=== PATIENT | female | born 1945 | race Caucasian/White ===

== ENCOUNTER 2023-05-10 11:14 | Outpatient (CLI) | payer MEDICARE, OTHER, SELFPAY ==
[2023-05-10 19:37] LABS: Hematocrit 38.5 % (37.0-47.0); Hemoglobin 12.2 g/dL (12.0-15.0); Mean Corpuscular HGB Conc 31.7 g/dl (32-36); Mean Corpuscular Volume 94.6 fl (80-100); Mean Platelet Volume 10.4 fl (7.4-10.4); Platelet Count Result 187 k/mm3 (150-375); Red Blood Count 4.07 M/mm3 (4.2-5.4); Red Cell Distribution Width 14.1 % (11.5-14.5); White Blood Count 6.1 K/mm3 (4.5-10.0)
[2023-05-10 19:50] LABS: Iron 79 ug/dL (37-170)
[2023-05-10 20:08] LABS: Free T4 Free Thyroxine 1.52 ng/mL (0.78-2.19)
[2023-05-10 20:25] LABS: Percent Iron Saturation 27 % (20-50)
[2023-05-10 20:53] LABS: Folic Acid 3.9 ng/mL (2.76->20)
== END 2023-05-10 11:15 | disposition home or self-care (01) ==
PROVIDERS: PCP Nurse Practitioner Adult Health; Visit Provider Nurse Practitioner Adult Health
DX: L65.9 Nonscarring hair loss, unspecified (principal)
CPT/HCPCS: 36415; 82607; 82728; 82746; 83540; 83550; 84439; 84443; 85027

== ENCOUNTER 2023-08-25 10:25 | Emergency (ER) | payer MEDICARE, OTHER, SELFPAY ==
--- NOTE | ~2023-08-25 | CT_ITS ---
EXAMINATION: CTA abdomen pelvis DATE: 08/25/2023 11:49 INDICATION: Melena and abdominal pain TECHNIQUE: Computed tomographic angiography (CTA) of the abdomen and pelvis was performed with 100 mL Omnipaque-350 intravenous contrast. Additional 3D reconstructions utilizing rotating maximum intensi ty projection (MIP) were performed. Automated exposure control and iterative reconstruction technique were employed. The dose-length product was 1207.78 mGy-cm. COMPARISON: None FINDINGS: There are multiple small patchy opacities throughout all lobes of the visualized mid to lower lungs c onsistent with likely multifocal pneumonia. Heart size is normal. Cardiac pacemaker lead tips at the right atrial appendage, the apex of the right ventricle and overlying the lateral wall of the left ve ntricle having traversed the coronary sinus. No pericardial or pleural effusion. Mild scattered ather osclerotic calcific without hemodynamically significant stenosis along the normal caliber abdominal a rajani and bilateral iliac arteries. Cholecystectomy clips the gallbladder fossa. Liver, spleen, pancre as, right bilateral adrenal glands and right kidney are normal. 2.1 cm left renal cyst. A few sigmoid diverticula without adjacent inflammatory stranding to suggest diverticulitis. The appendix is not v isualized. No pericecal inflammatory change to suggest acute appendicitis. No bowel obstruction. No a bnormal wall thickening or intraluminal contrast extravasation. Bladder is normal. The uterus is not identified and has likely been surgically resected. Severe lumbar spondylosis. A few small sclerotic bone islands in the pelvis and proximal left femur. IMPRESSION: 1. No acute intra-abdominal/pelvic process. Reviewed, dictated and finalized at location B.
--- NOTE | 2023-08-25 10:48 | ED.GENADULT ---
HPI - General Adult General Chief complaint: GI Bleed <Taylor Comer PA-C - Last Filed: 08/25/23 12:50> Stated complaint: black stools <Taylor Comer PA-C - Last Filed: 08/25/23 12:50> Time Seen by Provider: 08/25/23 10:36 <Taylor Comer PA-C - Last Filed: 08/25/23 12:50> History of Present Illness HPI narrative: 78-year-old female with history of IBS, GERD, CAD was chronically anticoagulated on Eliquis presents to the emergency department for black stools. Patient states she had a black stool 4 days ago and again 2 days ago. States she has known internal external hemorrhoids and is scheduled to see a physician in [facility] regarding these in the next few months. She had a colonoscopy last 2 years ago which showed polyps and was otherwise unremarkable. She is reporting chronic abdominal pain which is unchanged from her baseline. States the abdominal pain is improved after a bowel movement. She is taking Linzess for IBS and was recently started on famotidine by her PCP. She reports nausea which she contributes to her Ozempic, denies vomiting, diarrhea, fever, urinary complaints, mucus in her stool. No history of UC or Crohn's. Denies use of Pepto-Bismol. <Taylor Comer PA-C - Last Filed: 08/25/23 12:50> Related Data Home medications: Home Medications Medication Instructions Recorded Confirmed apixaban 5 mg tablet (Eliquis) mg 08/25/23 carvedilol 3.125 mg tablet mg 08/25/23 famotidine 40 mg tablet mg 08/25/23 linaclotide 72 mcg capsule mcg 08/25/23 (Linzess) metformin 500 mg tablet,extended mg PO 08/25/23 release 24 hr mirabegron 25 mg tablet,extended mg PO 08/25/23 release 24 hr (Myrbetriq) pitavastatin calcium 2 mg tablet mg 08/25/23 semaglutide 0.25 mg or 0.5 mg (2 mg subcut 08/25/23 08/25/23 mg/3 mL) subcutaneous pen injector (Ozempic) <OLEGARIO Jackson Last Filed: 08/25/23 12:50> Allergies/adverse reactions: Allergies Allergy/AdvReac Type Severity Reaction Status Date / Time codeine Allergy Unknown DIZZINESS Verified 08/25/23 10:50 COUGH MED W CODEINE CHOCOLATE Allergy Unknown SINUS Uncoded 07/10/23 11:08 CONGESTION EGGS Allergy Unknown SINUS Uncoded 07/10/23 11:08 CONGESTITON MILK Allergy Unknown SINUS Uncoded 07/10/23 11:08 CONGESTION <Taylor Comer PA-C - Last Filed: 08/25/23 12:50> Review of Systems Review of Systems: CONSTITUTIONAL: Denies fever, chills, or sweats. EYES: Denies visual changes, redness, or discharge. ENT: Denies rhinorrhea, congestion, sore throat, or otalgia. CARDIOVASCULAR: Denies chest pain, palpitations, or edema. RESPIRATORY: Denies cough or dyspnea. GASTROINTESTINAL: See HPI GENITOURINARY: Denies dysuria or hematuria. SKIN: Denies rash or itching. MUSCULOSKELETAL: Denies back pain, joint pain, or myalgia. NEUROLOGIC: Denies headache, numbness, or weakness. PSYCHIATRIC: Denies anxiety or depression. <Taylor Comer PA-C - Last Filed: 08/25/23 12:50> REPLACED BY [facility] Past Medical History Medical History: Medical History Allergies Arthritis Chronic GERD Diabetes Heart disease Osteoporosis <Taylor Comer PA-C - Last Filed: 08/25/23 12:50> Family History Family History: Family History Father Heart disease Grandparent Diabetes mellitus <Taylor Comer PA-C - Last Filed: 08/25/23 12:50> Social History Social History: Social History Smoking status: Never smoker Alcohol intake: never Lack of Transportation: No Lack of Food: Never True Current Housing: I Have Housing Concerned About Future Housing: No Difficulty Paying Gas/Electric Bills: No Difficulty Paying for Meds: No Currently Unemployed: Decline to Answer Education: Associate Degree Di
[2023-08-25] MEDS: PANTOPRAZOLE SODIUM IV 40 MG VIAL IV PUSH (10:57)
[2023-08-25] MEDS: SODIUM CHLORIDE 0.9% IV 1,000 ML 999 ML IV CONT (10:57)
[2023-08-25 11:09] VITALS: BP 163/81; PULSE 81; RESP 18; O2SAT 96
[2023-08-25 11:15] LABS: Basophils Absolute Auto 0.1 K/mm3 (0.0-0.1); Eosinophils Absolute Auto 0.2 K/mm3 (0-0.3); Eosinophils Percent Auto 2.5 % (0-4.4); Hematocrit 38.5 % (37.0-47.0); Hemoglobin 12.7 g/dL (12.0-15.0); Immature Granulocyte Absolute 0.01 K/mm3 (0.00-0.031); Immature Granulocyte Percent A 0.2 % (0-0.5); Lymphocytes Absolute Auto 1.45 K/mm3 (0.9-3.2); Mean Corpuscular Hemoglobin 30.1 pg (26-34); Mean Corpuscular Volume 91.2 fl (80-100); Mean Platelet Volume 9.9 fl (7.4-10.4); Monocytes Absolute Auto 0.4 K/mm3 (0.1-0.6); Monocytes Percent Auto 6.6 % (2.6-8.5); Neutrophils Percent Auto 65.7 % (45.5-73.1); Platelet Count Result 220 k/mm3 (150-375); Red Blood Count 4.22 M/mm3 (4.2-5.4); Red Cell Distribution Width 13.7 % (11.5-14.5)
[2023-08-25 11:19] LABS: INR 1.3; Prothrombin Time 16.9 Seconds (11.1-14.7)
[2023-08-25 11:20] LABS: Partial Thromboplastin Time 30.5 Seconds (22.3-36.8)
[2023-08-25 11:23] LABS: Alanine Aminotransferase 25 U/L (6-35); Albumin Level 4.3 g/dL (3.5-5.1); Alkaline Phosphatase 70 U/L (38-126); Anion Gap 6 mmol/L (8-16); Aspartate Amino Transferase 30 U/L (14-36); Bilirubin,Total 0.6 mg/dL (0.2-1.3); Blood Urea Nitrogen 22 mg/dL (7-17); Calcium 9.5 mg/dL (8.4-10.2); Carbon Dioxide 27 mmol/L (22-30); Chloride 105 mmol/L (98-107); Estimated CRCL calculation 61 ml/min; Estimated Glomerular Filt Rate > 60; Glucose 208 mg/dL (65-110); Potassium 4.1 mmol/L (3.4-5.0); Sodium 138 mmol/L (137-145)
[2023-08-25 12:08] VITALS: BP 151/78; PULSE 87; RESP 18; O2SAT 100
[2023-08-25 12:31] LABS: Appearance Urine Clear (Clear); Bilirubin Urine Negative (Negative); Blood Urine Negative (Negative); Color Urine Yellow (Yellow); Glucose Urine UA Trace mg/dL (Negative); Ketones Urine Negative (Negative); Leukocyte Esterase Ur Negative LEU/UL (Negative); Nitrate Urine Negative (Negative); Protein Urine Negative (Negative); Specific Grav Ur 1.012 (1.001-1.035); Urobilinogen Urine 0.2 mg/dL (<2.0)
[2023-08-25 12:32] LABS: Lactic Acid Reflex 1.4 mmol/L (0.7-2.0)
[2023-08-25 12:42] LABS: Add Urine Microscopic? NO
== END 2023-08-25 12:58 | disposition home or self-care (01) ==
PROVIDERS: Family Medicine; Emergency Provider Physician Assistant; PCP Nurse Practitioner Adult Health
DX: R10.84 Generalized abdominal pain (principal); I25.10 Atherosclerotic heart disease of native coronary artery without angina pectoris; E11.9 Type 2 diabetes mellitus without complications; K21.9 Gastro-esophageal reflux disease without esophagitis; K58.9 Irritable bowel syndrome, unspecified; M81.0 Age-related osteoporosis without current pathological fracture; Z86.010 Personal history of colon polyps; Z79.01 Long term (current) use of anticoagulants; Z79.85 Long-term (current) use of injectable non-insulin antidiabetic drugs; Z79.84 Long term (current) use of oral hypoglycemic drugs
CPT/HCPCS: 36415; 74174; 80053; 83605; 85025; 85610; 85730; 86850; 86900; 86901; 96361; 96374; 99284; C9113; J7030; Q9967

== ENCOUNTER 2023-08-30 11:35 | Outpatient (CLI) | payer MEDICARE, OTHER, SELFPAY ==
--- NOTE | ~2023-08-30 | XR_ITS ---
AP and lateral views of the neck Clinical history: Swelling FINDINGS: There is anterior fusion from C4-C5. There is severe degenerative disc narrowing at C5-C6 a nd C6-C7. There is extensive bridging anterior osteophytes from C2 to C3, the additional anterior ost eophytes from C3 to C4 and C6-C7. Suggestion of narrowing of the inferior oropharynx related to the l arge anterior C2-C3 osteophytes. No prevertebral soft tissue swelling otherwise. No other soft tissue reality seen. IMPRESSION: Suggestion of narrowing of the inferior oropharynx related to large anterior bridging osteophytes fro m C2 to C3. Extensive degenerative change of the cervical spine with anterior fusion from C4 to C5, as detailed a lianna. Reviewed, dictated and finalized at location M. IMPRESSION: Suggestion of narrowing of the inferior oropharynx related to large anterior br idging osteophytes from C2 to C3. Extensive degenerative change of the cervical spine with anterior fusion from C 4 to C5, as detailed above.
== END 2023-08-30 11:36 | disposition home or self-care (01) ==
LOC: ANHBWCIMG 11:37
PROVIDERS: PCP Nurse Practitioner Adult Health; Visit Provider Nurse Practitioner Adult Health
DX: R22.1 Localized swelling, mass and lump, neck (principal); Z98.1 Arthrodesis status
CPT/HCPCS: 70360

== ENCOUNTER 2023-09-04 09:27 | Outpatient (CLI) | payer MEDICARE, OTHER, SELFPAY ==
--- NOTE | ~2023-09-04 | NM_ITS ---
EXAMINATION: NM bone scan whole body DATE: 09/04/2023 13:49 INDICATION: Disorder of bone TECHNIQUE: 25.0 mCi Tc-99m HDP was administered intravenously. Delayed whole-body scintigrams were o btained. COMPARISON: CT dated 08/25/2023 and cervical soft tissues radiograph dated 08/30/2023 FINDINGS: Likely degenerative joint centered uptake at the bilateral acromioclavicular joints, at the bilateral knees greatest at the medial compartment of the left knee and at multiple joints of the bilateral junior nds and feet. Mild likely degenerative disc centered uptake in the lumbar spine and C6-C7 with corres ponding severe spondylosis evident on the prior radiograph and CT. On the initial imaging there is so me artifactual activity likely representing skin or clothing contamination at the posterior right fla nk which is not seen on follow-up scintigrams obtained following removal of the contamination. No no other foci of abnormal bone uptake suspicious for malignancy. IMPRESSION: 1. Scattered likely degenerative joint and disc centered uptake. No lesion suspicious for malignancy/ metastatic disease. Reviewed, dictated and finalized at location A. IMPRESSION: 1. Scattered likely degenerative joint and disc centered uptake. No lesion susp icious for malignancy/metastatic disease.
== END 2023-09-04 09:28 | disposition home or self-care (01) ==
LOC: ANHIMG 09:29
PROVIDERS: PCP Nurse Practitioner Adult Health; Visit Provider Nurse Practitioner Adult Health
DX: M89.9 Disorder of bone, unspecified (principal)
CPT/HCPCS: 78306; A9503

== ENCOUNTER 2023-09-13 14:47 | Outpatient (CLI) | payer MEDICARE, OTHER, SELFPAY ==
--- NOTE | ~2023-09-13 | XR_ITS ---
XR_CERV2-3V_CR DATE: 09/13/2023 15:03 INDICATION: Neck pain. Feels like something is in the throat. TECHNIQUE: AP, open-mouth, lateral and swimmer views COMPARISON: None FINDINGS: Huge anterior bridging osteophyte formation at C2-3, impressing the posterior airway opposi te the epiglottis. C2-3 and C3-4 interspaces are relatively well preserved. Status post anterior and interbody surgical fusion at C4-5, with associated effusion continuing at C5 -6. There are severe degenerative disc disease at C6-7. Moderately severe degenerative disc disease and mild anterolisthesis at C7-T1. C1 and C2 are normally aligned and the odontoid process is intact. No fracture or dislocation or lock ed facet or prevertebral soft tissue swelling is detected.. IMPRESSION: Status post anterior surgical fusion at C4-5, with fusion continuing through C5-6 Severe degenerative disc disease at C6-7 Moderately severe degenerative disease and mild anterolisthesis at the C7-T1 Very prominent bridging anterior osteophyte formation at C2-3 Reviewed, dictated and finalized at Location A. Reviewed, dictated and finalized at location B. IMPRESSION: Status post anterior surgical fusion at C4-5, with fusion continuin g through C5-6 Severe degenerative disc disease at C6-7 Moderately severe degenerative disease and mild anterolisthesis at the C7-T1 Very prominent bridging anterior osteophyte formation at C2-3
== END 2023-09-13 14:48 | disposition home or self-care (01) ==
PROVIDERS: PCP Nurse Practitioner Adult Health; Visit Provider Nurse Practitioner Adult Health
DX: M50.323 Other cervical disc degeneration at C6-C7 level (principal); M43.13 Spondylolisthesis, cervicothoracic region; M50.33 Other cervical disc degeneration, cervicothoracic region; M25.78 Osteophyte, vertebrae; Z98.1 Arthrodesis status
CPT/HCPCS: 72040

== ENCOUNTER 2023-10-09 08:40 | Outpatient (CLI) | payer MEDICARE, OTHER, SELFPAY ==
--- NOTE | ~2023-10-09 | XR_ITS ---
EXAMINATION: XR barium swallow modified DATE: 10/09/2023 09:24 INDICATION: Dysphagia, unspecified. TECHNIQUE: The patient was given barium-containing material of multiple consistencies to swallow by t homar speech pathologist while I performed fluoroscopy. Fluoroscopy exposure time was 0.66 minutes. The number of fluoroscopy images saved to the PACS was 1. Dose-area product was 0.655 Gy-cm^2. FINDINGS: The oral stage, pharyngeal stage, and cervical/esophageal stage of the swallow are normal. IMPRESSION: 1. Normal modified barium swallow. 2. Please refer to the speech therapy report for recommendations. Reviewed, dictated and finalized at location A.
--- NOTE | 2023-10-09 15:04 | REHSTMBS ---
Assessment and note entered by Josselin Zarco, GERONTOLOGY AIDE Modified Barium Swallow Evaluation Feeding Type Recommended Oral Food Consistency Regular, Level 7 Liquid Consistency Thin (0) ST Clinical Summary MODIFIED BARIUM SWALLOW STUDY This patient was seen for a Modified Barium Swallow study at the request of her physician. Patient reported that she has had spinal surgery in the neck in 1993 and then again in 2003. Patient reports a feeling of fullness at the level of the mid-sternum when eating as if food hangs up in the esophagus but she denied difficulty swallowing at the pharyngeal level. Patient was viewed in the lateral position to the level of C5/C6. screws and other metal material was viewed in the neck and a protrusion at about the level of the esophagus entrance was noted. Patient was presented with thin liquid contrast medium, pudding mixed with the semi-solid mixture, and then crackers and fruit cocktail both coated with the semi-solid mixture. She exhibited quick swallows with no evidence of penetration or aspiration and no significant pharyngeal residue. Material did have to go around the spur or protrusion into the esophagus but no pooling or residue was noted in the pharynx as a result of the protrusion. Results suggest patient can remain on a Regular Diet with Regular Liquids however patient may prefer smaller bites of softer foods than large bites of solid, [id number]-na-avwm foods. She is referred back to her physician for further assessment of her complaints. Thank you for this referral.
== END 2023-10-09 08:41 | disposition home or self-care (01) ==
LOC: ANHIMG 08:45
PROVIDERS: PCP Nurse Practitioner Adult Health; Visit Provider Physician Assistant
DX: R13.10 Dysphagia, unspecified (principal); R22.1 Localized swelling, mass and lump, neck
CPT/HCPCS: 92611

== ENCOUNTER 2025-03-14 10:29 | Emergency (ER) | payer MEDICARE, OTHER, SELFPAY ==
--- OUTSIDE RECORDS SUMMARY | 2018-01-29 | XMS_ITS | Encounter Summary ---
Author Organization [facility] Healthcare Address [address] [place] [address] Care Team Providers Care Marble Cutter Operator Name Role Phone Ilan Lockwood MD Primary Care Provider +1- [phone] Reason for Visit * Diagnostic Imaging (Routine) - Closed Specialty Diagnoses / Procedures Referred By Contac t Referred To Contact Procedures Breast Imaging Screening Outside Reference Referral, Self Referral ID Status Reason Start Date Expiration Date Visits Re quested Visits Authorized [id number] Closed 12/10/2021 01/09/2023 1 1 Encounter Details Date Type Department Care Team (Late st Contact Info) Description 01/29/2018 Hospital Encounter [facility] [address] [place] [id number] Social History Tobacco Use Types Packs/Day Years Used Date Smoking Tobacco: Never Smokeless Tobacco: Never Alcohol Use Standard Drinks/Week Comments Yes 0 (1 standard drink = 0.6 oz pur e alcohol) some AUDIT-C Answer Date Recorded Frequency of Alcohol Consumption Not on file 12/25/2023 Q2: How many drinks containi ng alcohol do you have on a typical day when you are drinking? Patient does not drink Frequency of Binge Drinking Not on file 12/10 Comments No Sex and Gender Information Value Date Recorded Sex Assigned at Not on file Legal Sex Female 6:22 PM EVS ATTENDANT Gender Identity Female 02/09/2018 7:35 AM CDT Sexual Orientation Not on file COVID-19 Exposure Response Date Recorded In the last month, have you been in contact with someone who was confirmed or suspected to have Coronavirus / COVID-19? No / Unsure 08/29/2019 11:13 AM CDT documented as of this encounter Functional Status documented as of this encounter Plan of Treatment Not on file documented as of this encounter Procedures Procedure Name Priority Date/Time Associated Diagnosis Comments BREAST IMAGING MG SCREENING OUTSIDE REFERENCE Routine 01/29/2018 12:00 AM CDT documented in this encounter Results * Breast Imaging Screening Outside Reference (01/29/2018 12:00 AM CDT) Impressions [facility]MO[facility] - 12/10/2021 8:09 AM CDT These images are for Reference purposes only and have not been reviewed by [facility] Radiology. There will be no report generated by a [facility] Radiologist. Narrative RAD_MAMMO[facility] - 12/10/2021 8:09 AM CDT EXAMINATION: Images For Reference Purposes Only us Self Referral IMG MAMMO PROCEDURES Final Resul t [facility]MO[facility] documented in this encounter Visit Diagnoses Not on filedocumented in this encounter Care Teams Marble Cutter Operator Relationship Specialty [place] [address] [place] [address] PCP - General 11/16/16 05/14/23 documented as of this encounter
--- OUTSIDE RECORDS SUMMARY | 2018-01-29 | XMS_ITS | Encounter Summary ---
Author Organization [facility] Healthcare Address [address] [place] [address] Care Team Providers Care Order Analyst Name Role Phone Ilan Lockwood MD Primary Care Provider +1- [phone] Reason for Visit * Diagnostic Imaging (Routine) - Closed Specialty Diagnoses / Procedures Referred By Contac t Referred To Contact Procedures Breast Imaging Screening Outside Reference Referral, Self Referral ID Status Reason Start Date Expiration Date Visits Re quested Visits Authorized [id number] Closed 12/10/2021 01/09/2023 1 1 Encounter Details Date Type Department Care Team (Late st Contact Info) Description 01/29/2018 Hospital Encounter [facility] Radiology [facility] [address] [place] [address] Social History Tobacco Use Types Packs/Day [...] on file Legal Sex Female 6:22 PM BOTTOM WHEELER Gender Identity Female 02/09/2018 7:35 AM CDT [...] only and have not been reviewed by [facility] Radiology. There will be no report generated by a [facility] Radiologist. Narrative RAD_MAMMO[facility] - 12/10/2021 8:09 AM CDT EXAMINATION: Images For Reference Purposes Only us Self Referral IMG MAMMO PROCEDURES Final Resul t [facility] documented in this encounter Visit Diagnoses Not on filedocumented in this encounter Care Teams Order Analyst Relationship Specialty [place] [address] [place] [address] PCP - General 11/16/16 05/14/23 documented as of this encounter
--- OUTSIDE RECORDS SUMMARY | 2019-02-07 | XMS_ITS | Encounter Summary ---
Author Organization [facility] Healthcare Address [address] [place] [address] Care Team Providers Care Appellate Conferee Name Role Phone Ilan Lockwood MD Primary Care Provider +1- [phone] Reason for Visit * Diagnostic Imaging (Routine) - Closed Specialty Diagnoses / Procedures Referred By Contac t Referred To Contact Procedures Breast Imaging Screening Outside Reference Referral, Self Referral ID Status Reason Start Date Expiration Date Visits Re quested Visits Authorized [id number] Closed 12/10/2021 01/09/2023 1 1 Encounter Details Date Type Department Care Team (Late st Contact Info) Description 02/07/2019 Hospital Encounter [facility]iology [facility] [address] [place] [address] Social History Tobacco Use Types Packs/Day [...] on file 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 Radiology. There will be no report generated by a [facility] Radiologist. Narrative RAD_MAMMO[facility] - 12/10/2021 8:10 AM CDT EXAMINATION: Images For Reference Purposes Only us Self Referral IMG MAMMO PROCEDURES Final Resul t [facility] documented in this encounter Visit Diagnoses Not on filedocumented in this encounter Care Teams Appellate Conferee Relationship Specialty [place] [address] [place] [address] PCP - General 11/16/16 05/14/23 documented as of this encounter
--- OUTSIDE RECORDS SUMMARY | 2019-02-07 | XMS_ITS | Encounter Summary ---
Author Organization [facility] Healthcare Address [address] [place] [address] Care Team Providers Care Whitewasher Name Role Phone Ilan Lockwood MD Primary Care Provider +1- [phone] Reason for Visit * Diagnostic Imaging (Routine) - Closed Specialty Diagnoses / Procedures Referred By Contac t Referred To Contact Procedures Breast Imaging Screening Outside Reference Referral, Self Referral ID Status Reason Start Date Expiration Date Visits Re quested Visits Authorized [id number] Closed 12/10/2021 01/09/2023 1 1 Encounter Details Date Type Department Care Team (Late st Contact Info) Description 02/07/2019 Hospital Encounter [facility] Radiology [facility] [address] [place] [address] Social History Tobacco Use Types Packs/Day [...] on file 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 There will be no report generated by a [facility] Radiologist. Narrative RAD_MAMMO[facility] - 12/10/2021 8:10 AM CDT EXAMINATION: Images For Reference Purposes Only us Self Referral IMG MAMMO PROCEDURES Final Resul t [facility] documented in this encounter Visit Diagnoses Not on filedocumented in this encounter Care Teams Whitewasher Relationship Specialty [place] [address] [place] [address] PCP - General 11/16/16 05/14/23 documented as of this encounter
--- OUTSIDE RECORDS SUMMARY | 2019-02-12 | XMS_ITS | Encounter Summary ---
Author Organization [facility] Healthcare Address [address] [place] [address] Care Team Providers Care Foundation Coordinator Name Role Phone Ilan Lockwood MD Primary Care Provider +1- [phone] Reason for Visit * Diagnostic Imaging (Routine) - Closed Specialty Diagnoses / Procedures Referred By Contac t Referred To Contact Procedures Breast Imaging Diagnostic Outside Reference Referral, Self Referral ID Status Reason Start Date Expiration Date Visits Re quested Visits Authorized [id number] Closed 12/10/2021 01/09/2023 1 1 Encounter Details Date Type Department Care Team (Late st Contact Info) Description 02/12/2019 Hospital Encounter [facility] Radiology [facility] [address] [place] [address] Social History Tobacco Use Types Packs/Day [...] on file Legal Sex Female 6:22 PM WHEAT BUYER Gender Identity Female 02/09/2018 7:35 AM CDT [...] Date/Time Associated Diagnosis Comments BREAST IMAGING MG DIAGNOSTIC OUTSIDE REFERENCE Routine 02/12/2019 12:00 AM CDT documented in this encounter Results * Breast Imaging Diagnostic Outside Reference (02/12/2019 12:00 AM CDT) Impressions RAD_M[facility]MO[facility] - 12/10/2021 8:09 AM CDT These images are for Reference purposes only and have not been reviewed by [facility] Radiology. There will be no report generated by a [facility] Radiologist. Narrative RAD_MAMMO[facility] - 12/10/2021 8:09 AM CDT EXAMINATION: Images For Reference Purposes Only us Self Referral IMG MAMMO PROCEDURES Final Resul t [facility]MO[facility] documented in this encounter Visit Diagnoses Not on filedocumented in this encounter Care Teams Foundation Coordinator Relationship Specialty [place] [address] [place] [address] PCP - General 11/16/16 05/14/23 documented as of this encounter
--- OUTSIDE RECORDS SUMMARY | 2019-02-12 | XMS_ITS | Encounter Summary ---
Author Organization [facility] Healthcare Address [address] [place] [address] Care Team Providers Care Special Client Bus Driver Name Role Phone lIan Lockwood MD Primary Care Provider +1- [phone] Reason for Visit * Diagnostic Imaging (Routine) - Closed Specialty Diagnoses / Procedures Referred By Contac t Referred To Contact Procedures Breast Imaging Diagnostic Outside Reference Referral, Self Referral ID Status Reason Start Date Expiration Date Visits Re quested Visits Authorized [id number] Closed 12/10/2021 01/09/2023 1 1 Encounter Details Date Type Department Care Team (Late st Contact Info) Description 02/12/2019 Hospital Encounter [facility] Radiology [facility] [address] [place] [address] Social History Tobacco Use Types Packs/Day [...] on file 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 There will be no report generated by a [facility] Radiologist. Narrative RAD_MAMMO[facility] - 12/10/2021 8:09 AM CDT EXAMINATION: Images For Reference Purposes Only us Self Referral IMG MAMMO PROCEDURES Final Resul t [facility] documented in this encounter Visit Diagnoses Not on filedocumented in this encounter Care Teams Special Client Bus Driver Relationship Specialty [place] [address] [place] [address] PCP - General 11/16/16 05/14/23 documented as of this encounter
--- OUTSIDE RECORDS SUMMARY | 2022-04-25 11:43 | XMS_ITS | Encounter Summary ---
Author Organization [facility] Address [address] [place] [address] Phone Care Team Providers Care Industrial Electrician Journeyman Name Role Phone Ilan Lockwood MD Primary Care Provider +1- [phone] Reason for Referral * (Routine) - Closed Specialty Diagnoses / Procedures Referred By Robbie leavitt Referred To Contact Diagnoses SOB (shortness of breath) Procedures Pulmonary Function Test -[facility] Adult PFT [facility]- [facility]; Spirometry with Bronchodilator, Spirometry, Oxygen Assessment Titration, ABG, DLCO, Lung Volumes; Pleth with Airway Resistance; Room Air ABG; Spirometry Justyn Francois MD Phone: tel: fax: Referral ID Status Reason Start Date Expiration Date Visits Re quested Visits Authorized [id number] Closed 01/24/2022 02/23/2023 1 1 ET INSPECTOR Reason for Visit * (Routine) - Closed Specialty Diagnoses / Procedures Referred By Contrupert leavitt Referred To Contact Diagnoses SOB (shortness of breath) Procedures Pulmonary Function Test -[facility]FT [facility]- [facility]; Spirometry with Bronchodilator, Spirometry, Oxygen Assessment Titration, ABG, DLCO, Lung Volumes; Pleth with Airway Resistance; Room Air ABG; Spirometry Justyn Francois MD Phone: tel: fax: Referral ID Status Reason Start Date Expiration Date Visits Re quested Visits Authorized [id number] Closed 01/24/2022 02/23/2023 1 1 Encounter Details Date Type Department Care Team (Latest Contact Info) Description 04/25/2022 10:43 AM GASKET INSPECTOR Hospital Encounter [facility] Medicine PFT Lab [address] [facility] Medical Office Building [address] [place] [address] SOB (shortness of breath) Social History Tobacco Use Types Packs/Day Years [...] on file Legal Sex Female 6:22 PM GASKET INSPECTOR Gender Identity Female 02/09/2018 7:35 AM CDT Sexual Orientation Not on file documented as of this encounter Functional Status documented as of this encounter Plan of Treatment Not on file documented as of this encounter Procedures Procedure Name Priority Date/Time Associated Diagnosis Comments PULMONARY FUNCTION TEST (PFT) Routine 04/25/2022 1:16 PM GASKET INSPECTOR SOB (shortness of breath) documented in this encounter Results * Pulmonary Function Test - (04/25/2022 1:16 PM GASKET INSPECTOR) FVC PRE 2.42 L [facility] FVC %PRE PRED 88 % [facility] FVC POST 2.52 L [facility] FVC %POST PRED 91 % [facility] FEV1 PRE 1.61 L [facility] FEV1 %PRE PRED 76 % [facility] FEV1 POST 1.67 L [facility] FEV1 %POST PRED 79 % [facility] FEV1/FVC PRE 66.5 % [facility] FEV1/FVC POST 66.2 % [facility] FRC PL PRE 3.11 L [facility] FRC PL %PRE PRED 105 % [facility] RV PRE 2.76 L [facility] RV %PRE PRED 119 % [facility] TLC PRE 5.26 L [facility] TLC %PRE PRED 102 % [facility] DLCO PRE 17.4 ml/min/mmH g [facility] DLCO %PRE PRED 89 % [facility] FIO2 % 21.00 % [facility] PaO2 90.0 mmHg [facility] PaCO2 40.0 mmHg [facility] pH 7.46 [facility] A-aDO2 POC 10.0 mmHg [facility] METHGB % 0.8 % [facility] COHb POC 2.1 % [facility] HCO3 28.4 mEq/L [facility] Anatomical Region Laterality Modality PFT 04/25/2022 10:5 1 AM GASKET INSPECTOR Narrative 04/29/2022 1:36 PM GASKET INSPECTOR Table formatting from the original result was not included. [facility] Division of Pulmonary & Critical Care Medicine [address] [place] [address]; [facility]; [place] [address]; [phone] Pulmonary Function Laboratory Pulmonary Stress Test Simple/Oxygen Assessment Patient: Loretta Cortes Date: No visit date found. : 1945 Ht: 64.5 IN Wt: 230 LBS Time (min) Distance (ft)/ Lea O2 L/M SpO2 HR Leonora* BP FEV1 % Pred Rest: RA 98 73 0 155/77 1.61 76 % Walk/Bike: 1 RA 98 97 3 2 RA 97 106 4 3 RA 97 111 4 4 RA 98 114 5 5 RA 97 115 5 6 min 0 sec RA 97 113 5 Recovery: 1 RA 97 89 3 190/78 1.55 73% 3 RA 99 82 0 *Leonora rate of perceived exertion (1-10 dyspnea scale) Azeem, CHEST 2003; 123:1408 Walk Test Summary: Six Minute Walk Distance: 720 ft Six-minute Walk Work [distance (m) x body wt (kg)]: 00220 kg.m (normal >60,000kg.m) Oxygen required to maintain SpO2 greater than 90% during six minutes of walkin L/M Comments: O2A Interpretation: Breathing room air, SpO2 is normal at rest and during exercise sufficient to increase pulse from 73 to 115 b/min, SpO2 is stable. On this basis, SpO2 is adequate at rest breathing room air and while walking breathing room air. This level of exercise is associated with no significant change of FEV1. Marco Velez M.D. By signing this report, the attending pulmonary physician certifies that he/she has personally reviewed and interpreted the graphic and numerical data associated with this pulmonary function study and has reviewed and /or edited a preliminary draft report and agrees with the written final report. PFT performed at:->[facility] Adult PFT Lab- [facility] Procedure:->Spirometry with Bronchodilator Procedure:->Spirometry Procedure:->Oxygen Assessment Titration Procedure:->ABG Procedure:->DLCO Procedure:->Lung Volumes Lung Volumes via:->Pleth with Airway Resistance ABG:->Room Air ABG DLCO:->Spirometry Justyn Francois MD PFT ORDERABLES Yazmin l Result documented in this encounter Visit Diagnoses Diagnosis SOB (shortness of breath) Shortness of breath documented in this encounter Care Teams Industrial Electrician Journeyman Relationship Specialty [place] [address] [address] PCP - General 11/16/16 05/14/23 documented as of this encounter
--- OUTSIDE RECORDS SUMMARY | 2022-04-25 11:43 | XMS_ITS | Encounter Summary ---
Author Organization [facility] Address [address] [place] [address] Phone Care Team Providers Care Supervisor Diagnostic Name Role Phone Ilan Lockwood MD Primary Care Provider +1- [phone] Reason for Referral * (Routine) - Closed Specialty Diagnoses / Procedures Referred By Robbie leavitt Referred To Contact Diagnoses SOB (shortness of breath) Procedures Pulmonary Function Test -[facility]FT [facility]- [facility]; Spirometry with Bronchodilator, Spirometry, Oxygen Assessment Titration, ABG, DLCO, Lung Volumes; Pleth with Airway Resistance; Room Air ABG; Spirometry Justyn Francois MD Phone: tel: fax: Referral ID Status Reason Start Date Expiration Date Visits Re quested Visits Authorized [id number] Closed 01/24/2022 02/23/2023 1 1 TER DOPER Reason for Visit * (Routine) - Closed Specialty Diagnoses / Procedures Referred By Contrupert leavitt Referred To Contact Diagnoses SOB (shortness of breath) Procedures Pulmonary Function Test -[facility]FT [facility]- [facility]; Spirometry with Bronchodilator, Spirometry, Oxygen Assessment Titration, ABG, DLCO, Lung Volumes; Pleth with Airway Resistance; Room Air ABG; Spirometry Justyn Francois MD Phone: tel: fax: Referral ID Status Reason Start Date Expiration Date Visits Re quested Visits Authorized [id number] Closed 01/24/2022 02/23/2023 1 1 Encounter Details Date Type Department Care Team (Latest Contact Info) Description 04/25/2022 10:43 AM QUARTER DOPER Hospital Encounter [facility] Medicine PFT Lab [address] [facility] Medical Office Building [address] [place] [address] SOB (shortness of breath) Social History Tobacco [...] on file Legal Sex Female 6:22 PM QUARTER DOPER Gender Identity Female 02/09/2018 7:35 AM CDT Sexual Orientation Not on file documented as of this encounter Functional Status documented as of this encounter Plan of Treatment Not on file documented as of this encounter Procedures Procedure Name Priority Date/Time Associated Diagnosis Comments PULMONARY FUNCTION TEST (PFT) Routine 04/25/2022 1:16 PM QUARTER DOPER SOB (shortness of breath) documented in this encounter Results * Pulmonary Function Test - (04/25/2022 1:16 PM QUARTER DOPER) FVC PRE 2.42 L [facility] FVC %PRE PRED 88 % [facility] FVC POST 2.52 L [facility] FVC %POST PRED 91 % [facility] FEV1 PRE 1.61 L [facility] FEV1 %PRE PRED 76 % [facility] FEV1 POST 1.67 L [facility] FEV1 %POST PRED 79 % [facility] FEV1/FVC PRE 66.5 % [facility] FEV1/FVC POST 66.2 % [facility] FRC PL PRE 3.11 L [facility] FRC PL %PRE PRED 105 % [facility] RV PRE 2.76 L [facility] RV %PRE PRED 119 % [facility] TLC PRE 5.26 L [facility] TLC %PRE PRED 102 % [facility] DLCO PRE 17.4 ml/min/mmH g [facility] DLCO %PRE PRED 89 % [facility] FIO2 % 21.00 % [facility] PaO2 90.0 mmHg [facility] PaCO2 40.0 mmHg [facility] pH 7.46 [facility] A-aDO2 POC 10.0 mmHg [facility] METHGB % 0.8 % [facility] COHb POC 2.1 % [facility] HCO3 28.4 mEq/L [facility] Anatomical Region Laterality Modality PFT 04/25/2022 10:5 1 AM QUARTER DOPER Narrative 04/29/2022 1:36 PM QUARTER DOPER Table formatting from the original result was not included. [facility] Division of Pulmonary & Critical Care Medicine [address] [place] [address]; [facility]; [place] [address]; [phone] Pulmonary Function Laboratory Pulmonary Stress Test Simple/Oxygen [...] Work [distance (m) x body wt (kg)]: 12983 kg.m (normal >60,000kg.m) Oxygen required to maintain [...] with the written final report. PFT performed at:->[facility] Adult PFT Lab- [facility] Procedure:->Spirometry with Bronchodilator Procedure:->Spirometry Procedure:->Oxygen Assessment Titration Procedure:->ABG Procedure:->DLCO Procedure:->Lung Volumes Lung Volumes via:->Pleth with Airway Resistance ABG:->Room Air ABG DLCO:->Spirometry Justyn Francois MD PFT ORDERABLES Yazmin l Result documented in this encounter Visit Diagnoses Diagnosis SOB (shortness of breath) Shortness of breath documented in this encounter Care Teams Supervisor Diagnostic Relationship Specialty [place] [address] [address] PCP - General 11/16/16 05/14/23 documented as of this encounter
--- OUTSIDE RECORDS SUMMARY | 2023-12-25 12:57 | XMS_ITS | Encounter Summary ---
Author Organization [facility] Address [address] [place] [address] Phone Care Team Providers Care Supervisor Engraving Name Role Phone Anisha Medrano NP Primary Care Provider [phone] Reason for Referral * Procedure (Routine) - Closed Specialty Diagnoses / Procedures Referred By Robbie leavitt Referred To Contact Diagnoses Bronchiectasis without complication (HCC) Procedures Pulmonary Function Test -[facility]FT [facility]- [facility]; Spirometry, Oxygen Assessment Titration Justyn Francois MD Phone: tel: fax: Referral ID Status Reason Start Date Expiration Date Visits Re quested Visits Authorized [id number] Closed 07/19/2023 08/17/2024 1 1 Reason for Visit * Procedure (Routine) - Closed Specialty Diagnoses / Procedures Referred By Robbie leavitt Referred To Contact Diagnoses Bronchiectasis without complication (HCC) Procedures Pulmonary Function Test -[facility]- [facility]; Spirometry, Oxygen Assessment Titration Justyn Francois MD Phone: tel: fax: Referral ID Status Reason Start Date Expiration Date Visits Re quested Visits Authorized [id number] Closed 07/19/2023 08/17/2024 1 1 Encounter Details Date Type Department Care Team (Latest Contact Info) Description 12/25/2023 12:57 PM CDT Hospital Encounter [facility] Medicine PFT Lab [address] [facility] [address] [place] [address] Bronchiectasis without complication (HCC) Social History Tobacco Use Types Packs/Day Years [...] on file 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 Gender Identity Female 02/09/2018 7:35 AM CDT Sexual Orientation Not on file documented as of this encounter Functional Status documented as of this encounter Plan of Treatment Not on file documented as of this encounter Procedures Procedure Name Priority Date/Time Associated Diagnosis Comments PULMONARY FUNCTION TEST (PFT) Routine 12/25/2023 1:24 PM CDT Bronchiectasis without complication (HCC) documented in this encounter Results * Pulmonary Function Test - (12/25/2023 1:24 PM CDT) FVC PRE 2.67 L [facility] FVC %PRE PRED 99 % [facility] FEV1 PRE 1.62 L [facility] FEV1 %PRE PRED 79 % [facility] FEV1/FVC PRE 60.8 % [facility] Anatomical Region Laterality Modality PFT 12/25/2023 1:00 PM CDT Impressions 12/25/2023 5:51 PM CDT There is a mild obstructive ventilatory defect. Compared with study dated 04/25/2022 , there has been no significant interval change. Fabián Clay MD The attending pulmonary physician certifies that he/she has reviewed and interpreted the graphic and numerical data of this pulmonary function study and agrees with the written final report. Narrative 12/25/2023 5:51 PM CDT Table formatting from the original result was not included. [facility] Division of Pulmonary & Critical Care Medicine [address] [place] [address]; [address]; [place] [address]; [phone] Pulmonary Function Laboratory Pulmonary Stress Test Simple/Oxygen Assessment Patient: Loretta Cortes Date: 12/25/2023 : 1945 Ht: 65 IN Wt: 223 LBS Time (min) Distance (ft)/ Lea O2 L/M SpO2 HR Leonora* BP FEV1 % Pred Rest: RA 98 103 4 128/60 1.62 79% Walk/Bike: 1 RA 98 110 4 2 RA 99 116 4 3 RA 99 120 4 4 RA 97 105 4 5 RA 96 105 5 6 min 0 sec RA 97 107 5 Recovery: 1 RA 97 117 5 124/63 1.60 78% 3 RA 98 114 5 *Leonora rate of perceived exertion (1-10 dyspnea scale) Azeem, CHEST 2003; 123:1408 Walk Test Summary: Six Minute Walk Distance: 675 ft Six-minute Walk Work [distance (m) x body wt (kg)]: 48706 kg.m (normal >60,000kg.m) Oxygen required to maintain SpO2 greater than 90% during six minutes of walkin L/M Comments: QUAD- CANE USED Interpretation: Breathing room air, SpO2 is normal at rest. During exercise sufficient to increase pulse from 103 to 120 b/min, SpO2 is stable. On this basis, SpO2 is adequate at rest breathing room air and while walking breathing room air. This level of exercise is associated with no significant change of FEV1. Fabián Clay M.D. By signing this report, the attending pulmonary physician certifies that he/she has personally reviewed and interpreted the graphic and numerical data associated with this pulmonary function study and has reviewed and /or edited a preliminary draft report and agrees with the written final report. PFT performed at:->[facility] Adult PFT Lab- [facility] Procedure:->Spirometry Procedure:->Oxygen Assessment Titration Pulmonary Function Test Interpretation SPIROMETRY: There is scooping of the expiratory limb of the flow-volume curve, consistent with expiratory airflow obstruction. There is a decrease in expiratory airflow at all lung volumes. The FEV1 to FVC ratio is reduced. FLOW VOLUME LOOPS: The inspiratory loop is appropriate for the expiratory flow abnormality. PULSE OXIMETRY: See Oxygen Assessment/Cardiopulmonary Exercise Study-Simple us Justyn Francois MD PFT ORDERABLES Yazmin l Result documented in this encounter Visit Diagnoses Diagnosis Bronchiectasis without complication (HCC) documented in this encounter Care Teams Supervisor Engraving Relationship Specialty Start Date End Date Anisha Medrano NP [address] [place] [address] PCP - General Nurse Practitioner 05/15/23 11/13/24 documented as of this encounter
--- OUTSIDE RECORDS SUMMARY | 2023-12-25 12:57 | XMS_ITS | Encounter Summary ---
Author Organization [facility] Address [address] [place] [address] Phone Care Team Providers Care Child Care Teacher Name Role Phone Anisha Medrano NP Primary Care Provider [phone] Reason for Referral * Procedure (Routine) - Closed Specialty Diagnoses / Procedures Referred By Robbie leavitt Referred To Contact Diagnoses Bronchiectasis without complication (HCC) Procedures Pulmonary Function Test -[facility]- [facility]; Spirometry, Oxygen Assessment Titration Justyn Francois MD Phone: tel: fax: Referral ID Status Reason Start Date Expiration Date Visits Re quested Visits Authorized [id number] Closed 07/19/2023 08/17/2024 1 1 Reason for Visit * Procedure (Routine) - Closed Specialty Diagnoses / Procedures Referred By Robbie leavitt Referred To Contact Diagnoses Bronchiectasis without complication (HCC) Procedures Pulmonary Function Test -[facility]- 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 [facility] Division of Pulmonary & Critical Care Medicine [address] [place] [address]; [address]; [place] [address]; [phone] Pulmonary Function Laboratory Pulmonary Stress Test Simple/Oxygen [...] Work [distance (m) x body wt (kg)]: 02938 kg.m (normal >60,000kg.m) Oxygen required to maintain [...] with the written final report. PFT performed at:->[facility] Adult PFT Lab- [facility] Procedure:->Spirometry Procedure:->Oxygen Assessment Titration Pulmonary Function Test [...] (HCC) documented in this encounter Care Teams Child Care Teacher Relationship Specialty Start Date End Date Anisha Medrano NP [address] [place] [address] PCP - General Nurse Practitioner 05/15/23 11/13/24 documented as of this encounter
--- NOTE | ~2025-03-14 | XR_ITS ---
EXAMINATION: XR hip LT min 3V w AP pelvis, 03/14/2025 12:00 CDT HISTORY: left hip pain, fall COMPARISON: No comparisons available. Findings: No acute fracture or malalignment. Moderate degenerative changes Soft tissues unremarkable. Impression: No acute fracture or malalignment. Reviewed, dictated and finalized at location P. Impression: No acute fracture or malalignment.
--- NOTE | ~2025-03-14 | XR_ITS ---
Clinical history:Left knee pain EXAM:X-ray knee left 3 views TECHNIQUE:4 images of the left knee were obtained. Comparisons:None available FINDINGS: Severe narrowing of the medial compartment and patellofemoral joint. Moderate sized suprapatellar effusion. Bones appear osteopenic. Mild spurring of the tibial spine. Moderate narrowing of the lateral compartment. No fracture. No dislocation. Mild lateral patellar tilt. Soft tissue swelling about the left knee. IMPRESSION: 1. No fracture or dislocation identified. 2. Severe narrowing of the medial compartment and patellofemoral joint. If symptoms persist or worsen, consider a short-term follow-up study or additional imaging for further assessment. Reviewed, dictated and finalized at location Q. IMPRESSION: 1. No fracture or dislocation identified. 2. Severe narrowing of the medial compartment and patellofemoral joint. If symptoms persist or worsen, consider a short-term follow-up study or additio nal imaging for further assessment.
--- NOTE | ~2025-03-14 | CT_ITS ---
CT HEAD NON-CONTRAST CT C-SPINE Clinical History: head injury Comparison: None Technique: Unenhanced axial images skull base to vertex. Coronal, sagittal reformats. Axial images thoracic inlet to skull base. Sagittal and coronal reformats. CT images acquired with automatic exposure control for dose reduction DLP: 757 mGy-cm Findings: Head: Sulci, ventricles: Unremarkable. No intracerebral hemorrhage. No evidence acute territorial infarct. No mass effect, midline shift, intra-/extra-axial fluid collection. Bony calvarium intact. Visualized paranasal sinuses: Clear. Mastoid air cells: Clear. C-spine: ACDF C4-5. Ankylosis C4-6 No acute fracture or listhesis. Moderate degenerative changes and disc disease. Prevertebral soft tissues within normal limits. Visualized lung apices: Bilateral nodular foci airspace opacity. Visualized thyroid: Unremarkable. No enlarged cervical nodes. IMPRESSION: HEAD: 1. No acute intracranial findings. C-SPINE: 1. Recommend CT chest. Bilateral nodular foci airspace disease and/or masses. 2. No C-spine fracture. Reviewed, dictated and finalized at location R. IMPRESSION: HEAD: 1. No acute intracranial findings. C-SPINE: 1. Recommend CT chest. Bilateral nodular foci airspace disease and/or masses. 2. No C-spine fracture.
[2025-03-14 10:32] VITALS: BP 115/76; PULSE 109; RESP 18; TEMP 37.1; O2SAT 97
--- OUTSIDE RECORDS SUMMARY | 2025-03-14 10:37 | XMS_ITS | Encounter Summary ---
Author Organization [facility] Address [address] [place] [address] Phone Care Team Providers Care Shrimp Packer Name Role Phone Ilan Lockwood MD Primary Care Provider [phone] Nat Collins RN Unavailable [phone] Anisha Medrano NP Primary Care Provider [phone] Anisha Medrano NP Primary Care Provider [phone] Encounter Details Date Type Department Care Team (Latest Contact Info) Description 04/09/2019 Orders Only [facility] Scanning, Provider Social History Tobacco Use Types Packs/Day Years Used Date Smoking Tobacco: Never Smokeless Tobacco: Never Comments Unknown Sex and Gender Information Value Date Recorded Sex Assigned at Not on file 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 Gender Identity Female 02/09/2018 7:35 AM CDT Sexual Orientation Not on file documented as of this encounter Plan of Treatment Not on file documented as of this encounter Procedures Procedure Name Priority Date/Time Associated Diagnosis Comments CARDIOLOGY DOCUMENT SCAN 04/09/2019 documented in this encounter Results * SCAN - CARDIOLOGY (04/09/2019) Anatomical Region Laterality Modality Other us Provider Scanning [facility] CARDIAC SERVICES PROCEDURES Final Result documented in this encounter Visit Diagnoses Not on filedocumented in this encounter Care Teams Shrimp Packer Relationship Specialty [place] [address] [address] PCP - General 11/16/16 05/14/23 Anisha Medrano NP [address] [place] [address] PCP - General Nurse Practitioner 05/15/23 11/13/24 Anisha Medrano NP [address] [place] [address] PCP - General Nurse Practitioner 11/14/24 Nat Collins, RN [address] [address] [facility] Outpatient Research Worker Kitchen 04/17/19 06/09/19 documented as of this encounter
--- OUTSIDE RECORDS SUMMARY | 2025-03-14 10:37 | XMS_ITS | Clinical Summary ---
Author Organization [facility] Address [address] [place] [address] Care Team Providers Care K9 Handler Name Role Phone Ilan Lockwood MD Primary Care Provider [phone] Allergies Active Allergy Reactions Criticality Noted Date Comments Atorvastatin Joint Pain Low 04/27/2020 Chocolate Runny Nose Low 04/26/2016 Codeine Nausea Only,Dizziness Low 04/26/2016 With the cough syrup Eggs Runny Nose Low 04/26/2016 Metoprolol Shortness of Breath High 05/15/2020 Milk (Cow) Runny Nose Low 04/26/2016 MILK Spironolactone Headache,Nausea Only ,GI Upset Low 05/30/2019 Medications aspirin EC 81 MG tablet Take 1 tablet (81 mg total) by mouth daily. 7 Active cetirizine 10 MG tablet Take 1 tablet (10 mg total) by mouth daily as needed. 6 Active Cholecalciferol (VITAMIN D3) 1000 units Cap Take 2 capsules by mouth daily. 6 Active Coenzyme Q10 (CO Q-10) 200 MG Cap Take 1 capsule by mouth daily. Active Wallula-3 Fatty Acids (FISH OIL) 1200 MG Cap Take 1 capsule by mouth daily. Active carvedilol 3.125 MG tablet Take 1 tablet (3.125 mg total) by mouth 2 (two) times daily. Active sacubitril-vals ginger (ENTRESTO) 24-26 MG tabletIndicatio ns:Heart failure (CMS/HCC HHS/HCC) Take 1 tablet by mouth 2 (two) times daily. 60 tablet 2 9 Active apixaban 5 MG tablet Take 1 tablet (5 mg total) by mouth 2 (two) times daily. Active calcium-magnesi um-zinc 333-133-5 MG Tab Take by mouth 3 (three) times daily. Active pitavastatin 2 MG Tab Take 1 tablet (2 mg total) by mouth 2 (two) times daily. Active ONETOUCH ULTRA test stripIndication s:Type 2 diabetes mellitus without complication, with long-term current use of insulin ([facility]) 1 strip by Other route daily. Use as instructed 100 strip 1 2 Active Lancets (ONETOUCH ULTRASOFT) lancetsIndicati ons:Type 2 diabetes mellitus without complication, with long-term current use of insulin ([facility]) USE TO TEST BLOOD SUGAR ONCE DAILY 100 each 1 2 Active MYRBETRIQ 25 MG 24 hr tablet Take 1 tablet (25 mg total) by mouth daily. Active famotidine (PEPCID) 40 MG tablet Take 1 tablet (40 mg total) by mouth daily. 3 Active metFORMIN ER (GLUCOPHAGE-XR) 500 MG 24 hr tablet Take 1 tablet (500 mg total) by mouth 2 (two) times daily with meals. 4 Active simvastatin (ZOCOR) 20 MG tablet Active traMADol (ULTRAM) 50 MG tablet Active Semaglutide (OZEMPIC, 0.25 OR 0.5 MG/DOSE, SC) Active Active Problems Problem Noted Date Diagnosed Date Morbid (severe) obesity due to excess calories 1 Acute non-recurrent maxillary sinusitis 09/28/19 22 Cough in adult 09/27/2021 SOB (shortness of breath) 08/11/2020 Overview (08/11/2020): Last Assessment & Plan: - unclear etiology, occurs intermittently at random, CXR with bilateral opacities but no cough/infectious symptoms Heart Failure. - echo with reduced EF of 45% Pt has bronchiectasis dx; start Entresto for HF Paroxysmal atrial fibrillation ([facility]) 12/04/2019 Pacemaker 08/29/2019 Bradycardia 08/21/2019 Overview (08/11/2020): Last Assessment & Plan: Bradycardia with rates to upper 30s. Minimally symptomatic at rest, but with dyspnea and lightheadedness on exertion. Found to be in 2:1 A-V conduction while coming in for outpatient RAUDEL. RAUDEL aborted. EP consulted. -telemetry -atropine at bedside -holding home carvedilol -CMR: No LGE enhancement to suggest infiltrative disease or scar -S/p CRTP PPM on 08/25 by EP (Dr Perez) -CXR and device check on 08/26 AM prior to likely discharge -Will follow up in EP clinic in 7-10 days Nonrheumatic mitral valve regurgitation 08/21/19 Overview (08/11/2020): Last Assessment & Plan: Mod-severe MR on TTE 08/02, worse compared to TTE from 03/2019. Was coming in for RAUDEL per Dr Reynoso. RAUDEL aborted 2/2 bradycardia. No current acute HF decompensation. MR possibly 2/2 dilated cardiomyopathy. -HF management as per HF problem -Will follow up with Dr Reynoso to schedule RAUDEL Coronary artery disease invo lving [place] coronary artery of [place] heart without angina pectoris 05/18/2019 Dilated cardiomyopathy ([facility]/H[facility]) 019 Chronic systolic congestive heart failure (CMS/H CC [facility]) 04/11/2019 Overview (08/11/2020): Last Assessment & Plan: NICM. EF 40-45% (08/02). Associated with mod-severe MR. No acute decompensation. 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 A1c 6.1 in March. -A1c -Accuchecks and SSI PRN - Has not required any insulin over multiple days. Will just follow BG on daily BMP Immunizations Immunization Administration Dates Next Due Arexvy Respiratory Syncytial Virus (RSV, adjuvanted) 0.5 mL, PF 03/23/2023 Fluzone High Dose (IIV, triv alent, 0.5mL) 03/10/2022,03/16/2020,05/23/2018,2017 Fluzone High Dose - >Age 65 (Prefilled Syringe) 03/23/2023,03/25/2021,05/23/2018,2017 Influenza Adult (Generic) 03/10/2022,,03/16/2020,2018,05/23/2018,07/24/2017 MODERNA COVID-19 BIVALENT (1 2+), MRNA, LNP-S, PF 02/24/2022 MODERNA COVID-19 (12+) MRNA, LNP-S, PF, 100 MCG/ 0.5 ML DOSE 04/06/2021,07/08/2020,06/10/2020 MODERNA COVID-19 ([employer]NAGER SHELBIE KENYA), MRNA, LNP-S, PF, 50 MCG/ 0.25 ML DOSE 11/12/2021 Pneumococcal (Pneumovax 23) 03/11/2018, 4 Pneumococcal (Prevnar 13) 05/23/2018 Tdap (Adacel) 12/17/2019 Tdap (Generic) 08/03/2010 Family History Medical History Relation Comments CHF Father Alzheimers Mother Dementia Mother Relation Status Comments Father Mother Social History Tobacco Use Types Packs/Day Years Used Date Smoking Tobacco: Never Smokeless Tobacco: Never Tobacco Cessation:Counseling Given: No Comments:no hx tobacco Alcohol Use Standard Drinks/Week Comments No 0 (1 standard drink = 0.6 oz pur e alcohol) AUDIT-C Answer Date Recorded Frequency of Alcohol Consumption Never 04/20/2018 Average Number of Drinks Not on file 018 Frequency of Binge Drinking Not on file 02/2018 PHQ-2 Answer Date Recorded Patient Health Questionnaire-2 Score 0 10/30/2023 Comments No Sex and Gender Information Value Date Recorded Sex Assigned at Not on file Legal Sex Female 5:54 PM CDT Gender Identity Not on file Sexual Orientation Not on file Last Filed Vital Signs Vital Sign Reading Time Taken Comments Blood Pressure 135/82 11/18/2024 11:00 AM CDT Pulse 107 11/18/2024 11:00 AM CDT Temperature 37.2 C (99 F) 11/18/2024 11:00 AM CDT Respiratory Rate 16 11/18/2024 11:00 AM CDT Oxygen Saturation 97% 11/18/2024 11:00 AM CDT Inhaled Oxygen Concentration - - Weight 94.8 kg (209 lb) 11/18/2024 11:00 AM CDT Height 167.6 cm (5' 6) 11/18/2024 11:00 AM CDT Body Mass Index 33.73 11/18/2024 11:00 AM CDT Plan of Treatment Health Maintenance Due Date Last Done Comments Kidney Health Evaluation 1945 Diabetes: Retinopathy Eye Exam 1965 Hepatitis C 1965 Zoster Vaccines (1 of 2) 1997 Annual Medicare Wellness Visit 02/23/2012 PHQ-2 (Physician [place]) 06/12/2024 10/30/2023 Hemoglobin A1C 09/14/2024 03/16/2024, 03/12, 01/04/2023, Additional history exists COVID-19 Vaccine ( season) 2025 03/02/2023, 02/24/2022, 11/12/2021, Additional history exists Lipid Panel 03/16/2025 03/16/2024, 12/10, 03/25/2023, Additional history exists DTaP, Tdap and Td Vaccines (3 - Td or Tdap) 12/16/2029 12/17/2019, 08/03/2010 Pneumococcal Vaccine: 50+ Years Completed 05/23/2018, 03/11/2018, 05/05/2014 Colorectal Cancer Screening Colonoscopy (10 Years) Discontinued 12/14/2021, 12/14/2021, 10/13/2015 RSV Immunization or 60+ Years Completed 03/23/2023 Dexa Scan (General) Completed 05/18/2023, 3 Meningococcal B Vaccine Aged Out No l onger eligible based on patient's age to complete this topic Meningococcal Vaccine Aged Out No michael marisa eligible based on patient's age to complete this topic RSV Immunizations Under 20 Months Aged Out No longer eligible based on patient's age to complete this topic Medical Devices Implanted Type Area Supervisor In Circuit Testing Device Identifier Shelf Expiration Date Model / Serial / Lot Pacemaker Pacemaker Description:[employer] Procedures Procedure Name Priority Date/Time Associated Diagnosis Comments HEALTH FAIR WITH LIPID Routine 03/16/2024 1:11 AM CDT HEMOGLOBIN, GLYCOSYLATED Routine 03/16/2024 1:11 AM CDT COLONOSCOPY Routine 12/14/2021 7:16 AM CDT from Last 3 Months or Most Recently Relevant to Health Maintenance Results * (ABNORMAL) HEALTH FAIR WITH LIPID (03/16/2024 1:11 AM CDT) WBC 5.70 4.4 - 11.0 x10'3/uL 03/16/2024 10:44 AM CDT [facility] RBC 3.90(L) 4.50 - 5.10 x10'6/uL 03/16/2024 10:44 AM CDT [facility] HGB 11.8(L) 12.3 - 15.3 G/DL 03/16/2024 10:44 AM CDT [facility] HCT 36.0 35.9 - 44.6 % 03/16/2024 10:44 AM CDT [facility] MCV 92.3 80.0 - 96.0 FL 03/16/2024 10:44 AM CDT [facility] MCH 30.3 25.3 - 30.9 PG 03/16/2024 10:44 AM T [facility] MCHC 32.8 31.0 - 34.1 G/DL 03/16/2024 10:44 AM CDT [facility] RDW 13.6 12.4 - 15.1 % 03/16/2024 10:44 AM CDT [facility] PLT 191 151 - 353 x10'3/uL 03/16/2024 10:44 AM T [facility] MPV 10.2 9.6 - 12.0 FL 03/16/2024 10:44 AM T [facility] RBC MORPHOLOGY NORMAL 03/16/2024 10:44 AM T [facility] PLT MORPH. NORMAL 03/16/2024 10:44 AM T [facility] WBC MORPHOLOGY NORMAL 03/16/2024 10:44 AM T [facility] LYMPHOCYTES % 26.1 15.8 - 45.0 % 03/16/2024 10:44 AM T [facility] NEUTROPHILS % 61.8 42.1 - 71.9 % 03/16/2024 10:44 AM T [facility] MONOCYTES % 8.4 5.7 - 12.5 % 03/16/2024 10:44 AM T [facility] EOSINOPHILS 2.6 0.0 - 5.6 % 03/16/2024 10:44 AM T [facility] BASOPHILS 0.7 0.0 - 1.3 % 03/16/2024 10:44 AM CDT [facility] ABS. NEUTROPHILS 3.52 1.40 - 6.00 x10'3/uL 03/16/2024 10:44 AM [facility] IMMATURE GRANS % 0.4 0.0 - 0.5 % 03/16/2024 10:44 AM [facility] ABS. LYMPHOCYTES 1.49 0.80 - 4.70 x10'3/uL 03/16/2024 10:44 AM [facility] GLUCOSE 146(H) 70 - 99 MG/DL 03/16/2024 11:21 AM [facility] BUN 19(H) 7 - 18 MG/DL 03/16/2024 11:21 AM [facility] CREATININE S/P/B 1.08(H) 0.55 - 1.02 MG/DL 03/16/2024 11:21 AM [facility] SODIUM S/P/B 142 136 - 145 MMOL/L 03/16/2024 11:21 AM [facility] POTASSIUM S/P/B 4.4 3.5 - 5.1 MMOL/L 03/16/2024 11:21 AM [facility] CHLORIDE S/P/B 105 100 - 108 MMOL/L 03/16/2024 11:21 AM [facility] CO2 25.9 21 - 32 MMOL/L 03/16/2024 11:21 AM [facility] CALCIUM S/P/B 9.3 8.5 - 10.1 MG/DL 03/16/2024 11:21 AM [facility] BILIRUBIN TOTAL S/P/B 0.5 0.2 - 1.2 MG/DL 03/16/2024 11:21 AM [facility] TOTAL PROTEIN S/P/B 7.2 6.4 - 8.2 G/DL 03/16/2024 11:21 AM [facility] ALBUMIN S/P/B 3.5 3.4 - 5.0 G/DL 03/16/2024 11:21 AM [facility] AST 20 15 - 37 U/L 03/16/2024 11:21 AM [facility] ALT 22 14 - 55 U/L 03/16/2024 11:21 AM [facility] ALKALINE PHOSPHATASE S/P/B 77 50 - 136 U/L 03/16/2024 11:21 AM [facility] ANION GAP 11.1 5 - 15 MMOL/L 03/16/2024 11:21 AM [facility] BUN CREATININE RATIO 17.6 6 - 26 03/16/2024 11:21 AM [facility] A/G RATIO 0.9(L) 1.0 - 2.0 RATIO 03/16/2024 11:21 AM [facility] GFR ESTIMATE 53(L) >90 ML/MIN/1. 73 M2 03/16/2024 11:21 AM [facility] Comment: NOTE: eGFR is not calculated for patients <18 years of age. This is an estimated GFR calculation using the new CKD EPI creatinine equation without race and so does not require a correction factor for race. This estimated GFR should not be used for calculating drug doses. TSH 3.157 0.358 - 3.74 uIU/ML 03/16/2024 11:21 AM [facility] Comment: HIGH DOSES OF BIOTIN MAY INTERFERE WITH THIS TEST RESULT. CORRELATION TO CLINICAL HISTORY AND PRESENTATION RECOMMENDED. CHOLESTEROL 142 <200.0 MG/DL 03/16/2024 11:21 AM [facility] TRIGLYCERIDES 110 <150 MG/DL 03/16/2024 11:21 AM [facility] HDL 51 >40.0 MG/DL 03/16/2024 11:21 AM [facility] LDL (CALCULATED) 69 <100 MG/DL 03/16/2024 11:21 AM CDT [facility] NON HDL CHOLESTEROL 91 <130 MG/DL 03/16/2024 11:21 AM CDT [facility] CHOL/HDL RATIO 2.8 0.0 - 4.5 03/16/2024 11:21 AM CDT [facility] VLDL CALCULATION 22 5 - 55 MG/DL 03/16/2024 11:21 AM CDT [facility] LIPID INTERPRETATION 03/16/2024 11:21 AM CDT [facility] Comment: [facility] REPORT RECOMMENDATIONS: ADULT CHILD LOW RISK: CHOLESTEROL <200 <170 TRIGLYCERIDE <150 --- HDL >=60 --- LDL <100 <110 BORDERLINE: CHOLESTEROL 200-239 170-199 TRIGLYCERIDE 150-199 --- HDL 40-59 --- LDL 100-159 110-129 HIGH RISK: CHOLESTEROL >=240 >=200 TRIGLYCERIDE >=200 --- HDL <40 --- LDL >=160 >=130 03/16/2024 1:11 AM CDT Benjamin Tovar MD LABORATORY Final Result [facility] [address] [place] [address], * (ABNORMAL) HEMOGLOBIN, GLYCOSYLATED (03/16/2024 1:11 AM CDT) HGB A1C 6.9(H) <5.7 % 03/16/2024 5:29 PM CDT [facility] Comment: INCREASED RISK OF DIABETES <5.7% NON-DIABETES 5.7-6.4% INCREASED RISK FOR FUTURE DIABETES > OR = 6.5 CONSISTENT WITH DIABETES STANDARDS OF MEDICAL CARE IN DIABETES-2010 DIABETES CARE, 33(SUPP 1): S1-S61,2009 ESTIMATED AVG GLUCOSE 151 mg/dL 03/16/2024 5:29 PM CDT [facility] 03/16/2024 1:11 AM CDT us Benjamin Tovar MD LABORATORY Final Result [facility] [address] [place] [address], * Colonoscopy (10/13/2015 12:00 AM CDT) 10/13/2015 10/13/2015 Narrative [facility] TO EPIC CONVERSION - 10/13/2015 12:00 AM CDT Documented hx of procedure Procedure Note Md Generic MD Srinath - 04/15/2018 Documented hx of procedure us Generic Conversion Md GUTIERREZ GI PROCEDURE ORDERABLES Final Result [facility] TO EPIC CONVERSION from Last 3 Months or Most Recently Relevant to Health Maintenance Insurance MEDICARE [place] [id number] Care Teams K9 Handler Relationship Specialty [place] [address] [place] [address] PCP - General FAMILY PRACTICE 03/21/18
--- OUTSIDE RECORDS SUMMARY | 2025-03-14 10:37 | XMS_ITS | Clinical Summary ---
Author Organization [facility] Address [address] [place] [address] Care Team Providers Care Carpet Or Rug Layer Helper Name Role Phone Anisha Medrano NP Primary Care Provider [phone] Allergies Active Allergy Reactions Criticality Noted Date Comments Atorvastatin Joint pain Low 04/27/2020 Chocolate Other (See comments) Low 08/10/2016 Runny nose Codeine Dizziness,Nausea only Low 09/17/2015 Stomach upset With the cough syrup Eggshell Membrane Rhinorrhea Low 04/26/2016 Milk Other (See comments),Rhinorrhea Low 04/26/2016 Runny nose MILK Spironolactone Stomach upset,Headache,Nausea only Low 05/30/2019 Medications cholecalcifero l (VITAMIN D-3) 1,000 unit Take 2 tablet/capsule (2,000 Units total) by mouth daily Active cetirizine (ZyrTEC) 10 mg tablet Take 1 tablet (10 mg total) by mouth daily as needed for allergies Active aspirin 81 mg tablet Take 1 tablet (81 mg total) by mouth daily Active omega 1-gyy-tno-fish oil 1,200 (144-216) mg capsule Take 1 capsule by mouth daily Active coenzyme Q10 100 mg capsule Take 1 capsule (100 mg total) by mouth daily Active calcium-magnes ium-zinc tablet Take by mouth 3 (three) times a day Active Myrbetriq 25 mg tablet extended release 24 hr daily Active famotidine (PEPCID) 40 mg tablet 05/11/20 23 Active pitavastatin calcium (LIVALO) 2 mg tablet TAKE 1 TABLET EVERY DAY 90 tablet 3 06/18/19 25 Active Entresto 24-26 mg tablet TAKE 1 TABLET TWICE DAILY 180 tablet 06/18/19 Active apixaban (Eliquis) 5 mg tablet Take 1 tablet (5 mg total) by mouth 2 (two) times a day 180 tablet 06/18/19 Active metFORMIN XR (GLUCOPHAGE XR) 500 mg 24 hr tabletIndicati ons:Type 2 diabetes mellitus with hyperglycemia, without long-term current use of insulin ([facility]) TAKE 1 TABLET TWICE DAILY WITH MEALS 180 tablet 07/09/19 Active Additional Information Patient taking differently:500 mg oralDaily, Reported on 12/02/2024 OneTouch Ultra Test stripIndicatio ns:Type 2 diabetes mellitus with hyperglycemia, without long-term current use of insulin ([facility]) Check blood sugar daily E11.65 not insulin dependent 100 strip 07/31/19 Active lancets 33 gauge miscIndication s:Type 2 diabetes mellitus with hyperglycemia, without long-term current use of insulin ([facility]) One Touch Delica Lancets Check blood sugars daily Dx:E11.65 not insulin dependent 100 each 08/05/19 Active pen needle, diabetic (BD Ultra-Fine Mini Pen Needle) 31 gauge x 3/16 needleIndicati ons:Type 2 diabetes mellitus with hyperglycemia, without long-term current use of insulin ([facility]) USE TO INJECT 1-4 TIMES DAILY DIRECTED. 100 each 1 10/18/19 Active semaglutide (Ozempic) 1 mg/dose (4 mg/3 mL) pen injector injectionIndic ations:Type 2 diabetes mellitus with hyperglycemia, without long-term current use of insulin ([facility]) INJECT 1MG UNDER THE SKIN ONE TIME WEEKLY 9 mL 10/22/19 Active Additional Information Patient taking differently: 0.75 mg subcutaneous Weekly, Reported on 12/02/2024 carvediloL (COREG) 3.125 mg tablet TAKE 1 TABLET TWICE DAILY WITH MEALS 180 tablet 02/29/20 Active carvediloL (COREG) 3.125 mg tablet TAKE 1 TABLET TWICE DAILY WITH MEALS 180 tablet 3 04/09/20 24 025 Discontinued Active Problems Problem Noted Date Diagnosed Date Class 2 severe obesity due t o excess calories with serious comorbidity and body mass index (BMI) of 36.0 to 36.9 in adult 12/19/2023 Assessment & Plan (12/19/2023 11:41 AM CDT): Discussed healthy diet and importance of regular physical activity (20- 30min/day, 150min/wk). Needs to increase activity outside of house work. Class 2 severe obesity due t o excess calories with serious comorbidity and body mass index (BMI) of 37.0 to 37.9 in adult 04/23/2023 Assessment & Plan (04/23/2023 8:58 PM R&D LAB TECHNICIAN): Chronic, worsening Counseled on diet and exercise Advise to increase resistance training Age-related osteoporosis wit hout current pathological fracture 04/23/2023 Assessment & Plan (07/23/2024 1:43 PM R&D LAB TECHNICIAN): DEXA completed 05/18/23 shows normal bone mass. Denies any h/o osteoporosis dx in past. Will update Vitamin D. Verified that she uses [facility]. Aware to check results/results letter in mychart. Will contact by phone if needed. Assessment & Plan (12/19/2023 11:17 AM CDT): DEXA completed 05/18/23 shows normal bone mass. Denies any h/o osteoporosis dx in past. Will update Vitamin D. Verified that she uses [facility]. Aware to check results/results letter in [facility]. Will contact by phone if needed. Assessment & Plan (09/20/2023 11:44 AM CDT): DEXA completed 05/18/23 shows normal bone mass. Denies any h/o osteoporosis dx in past. Assessment & Plan (08/01/2023 9:38 AM R&D LAB TECHNICIAN): DEXA completed 05/18/23 shows normal bone mass. Denies any h/o osteoporosis dx in past. Assessment & Plan (04/23/2023 8:58 PM R&D LAB TECHNICIAN): Repeat DEXA scan And further plans based on it Fall precautions Paroxysmal atrial fibrillation 12/04/2019 Pacemaker 08/29/2019 Bradycardia 08/21/2019 Assessment & Plan (08/27/2019 10:37 AM CDT): Bradycardia with rates to upper 30s. Minimally [...] 7-10 days Nonrheumatic mitral valve regurgitation 08/21/19 20 Assessment & Plan (08/27/2019 10:37 AM CDT): Mod-severe MR on TTE 08/02, worse compared to TTE from 03/2019. Was coming in for RAUDEL per Dr Reynoso. RAUDEL aborted 2/2 bradycardia. No current acute HF decompensation. MR possibly 2/2 dilated cardiomyopathy. -HF management as per HF problem -Will follow up with Dr Reynoso to schedule RAUDEL Coronary artery disease invo lving lytton coronary artery of [place] heart without angina pectoris 05/18/2019 Dilated cardiomyopathy 05/18/2019 Chronic systolic congestive heart failure 2018 Assessment & Plan (08/21/2019 6:23 PM CDT): NICM. EF 40-45% (08/02). Associated with mod-severe MR. No acute decompensation. -Hold home coreg 2/2 bradycardia -Continue home entresto and aldactone Assessment & Plan (04/11/2019 2:52 PM CDT): New Dx. EF 45% on TTE Unclear etiology start Entresto, coreg. F/U Dr. Reynoso in clinic. Okay for d/c home s/p [facility] Discharge Planning I have spent 45 minutes on discharge planning activities. Time spent was on Coordination of care, Med rec, Rxs, d/c summary. Chest discomfort 04/09/2019 Assessment & Plan (04/11/2019 2:48 PM CDT): No CAD, will treat CHF - continue aspirin coreg 3.125 BID Assessment & Plan (04/10/2019 2:21 PM CDT): - pain is fairly atypical that occurs at random, trops are negative x 2. EKG does now new LBBB compared to 2006 and patient has signs of volume overload - monitor on tele - echo shows reduced EF of 40% - cards consulted, Dr. Preston - will keep NPO MN for [facility] tomorrow - continue aspirin start coreg 3.125 BID Assessment & Plan (04/09/2019 8:11 PM CDT): - pain is fairly atypical that occurs at random, trops are negative x 2. EKG does now new LBBB compared to 2006 and patient has signs of volume overload - trend trop x 1 - s/p 20 lasix in ED - monitor on tele - echo - cards consult - will keep NPO MN for now - continue aspirin Diabetes 04/09/2019 Assessment & Plan (11/14/2024 2:03 PM CDT): Chronic problem. A1c at goal but increased from 6.5% 07/23/24 to now 6.8%. -can decrease metformin XR 500mg to daily -try to increase Ozempic up to 1mg weekly. Current medications: Metformin XR 500mg daily Ozempic 1 mg weekly UTD on labs UTD on DM eye exam (06/15/23 no [facility]). Discussed with Loretta Cortes: Strive for regular exercise (30min most days) and diet (get at least 4-5 servings of fruit and veggies daily, avoid processed foods, increase lean protein intake and decrease carb portions as well as fruit juices, regular soda & desserts). Watch carbs and simple sugars. Check the blood sugar: daily. Check the feet daily for skin breakdown and infection. Assessment & Plan (07/23/2024 2:54 PM R&D LAB TECHNICIAN): Chronic problem. A1c at goal and improved from 6.6% 12/19/23 to now 6.5%. issues with nausea. Will move the ozempic back to 0.5mg weekly (instructed in how to count clicks to get 0.5mg dose). Current medications: Metformin XR 500mg twice daily Ozempic 0.5 mg weekly UTD on labs UTD on DM eye exam (06/2023 at [facility] in [place]). Discussed with Loretta Cortes: Strive for regular exercise (30min most days) and diet (get at least 4-5 servings of fruit and veggies daily, avoid processed foods, increase lean protein intake and decrease carb portions as well as fruit juices, regular soda & desserts). Watch carbs and simple sugars. Check the blood sugar: daily. Check the feet daily for skin breakdown and infection. Assessment & Plan (12/19/2023 11:31 AM CDT): Chronic problem. A1c at goal and improved from 6.9% 09/20/23 to now 6.6%. Stop glimepiride (only taking 1x/week). Increase ozempic to 1mg weekly Current medications: Metformin XR 500mg twice daily Ozempic 1mg weekly Will update labs. Verified that she uses [facility]. Aware to check results/results letter in [facility]. Will contact by phone if needed. UTD on DM eye exam (06/2023 at [facility] in [place]). Discussed with Loretta Cortes: Strive for regular exercise (30min most days) and diet (get at least 4-5 servings of fruit and veggies daily, avoid processed foods, increase lean protein intake and decrease carb portions as well as fruit juices, regular soda & desserts). Watch carbs and simple sugars. Check the blood sugar: daily. Check the feet daily for skin breakdown and infection. Assessment & Plan (09/20/2023 12:06 PM CDT): Chronic problem. A1c at goal and improved from 8.8% 08/01/23 to now 6.9%. Drop the glimepiride to 1mg before breakfast. If blood sugars are not elevating before lunch (above 150-160). Stop the glimepiride if lower dose does not cause increased blood sugar. Alternate between checking before lunch and later in the evening; but always check morning fasting blood sugar. Current medications: Metformin XR 500mg twice daily Glimepiride 1mg before breakfast Ozempic 0.5mg weekly UTD on labs. UTD on DM eye exam (06/2023 at [facility] in [place]). Discussed with Loretta Cortes: Strive for regular exercise (30min most days) and diet (get at least 4-5 servings of fruit and veggies daily, avoid processed foods, increase lean protein intake and decrease carb portions as well as fruit juices, regular soda & desserts). Watch carbs and simple sugars. Check the blood sugar: daily. Check the feet daily for skin breakdown and infection. Assessment & Plan (08/01/2023 9:47 AM R&D LAB TECHNICIAN): Chronic problem. A1c not at goal and jaun carlos from 6.5% 04/19/23 to now 8.8%. Stop Rybelsus. Will switch to Ozempic weekly injection. Ozempic 0.25mg weekly x 4 weeks then increase to 0.5mg weekly. If GI symptoms with the dose increase--go back to the 0.25mg for a little longer. Add back the Glimepiride 2mg twice daily with meals. Pay attention to blood sugars--when they start dropping as Ozempic starts helping blood sugars; will need to decrease (& hopefully eventually) stop the Glimepiride. Current medications: Ozempic 0.25mg weekly x 4 weeks then increase to 0.5mg weekly. Metformin XR 500mg twice daily Glimepiride 2mg twice daily with meals. UTD on labs. DM eye exam 06/2023 at [facility] in [place]. Letter sent to get copy of report. Discussed with Loretta Cortes: Strive for regular exercise (30min most days) and diet (get at least 4-5 servings of fruit and veggies daily, avoid processed foods, increase lean protein intake and decrease carb portions as well as fruit juices, regular soda & desserts). Watch carbs and simple sugars. Check the blood sugar: daily. Check the feet daily for skin breakdown and infection. Assessment & Plan (04/23/2023 8:55 PM R&D LAB TECHNICIAN): Chronic , improving control , A1c 6.5 % But pt c/o progressive weight gain - start Rybelsus 3 mg oral daily - take it between breakfast and lunch - for 30 days than increase to 7 mg oral daily - keep taking januva 100 mg ( stop when you go up to 7 mg dose on Rybelsus ) - in 2 weeks start taking metformin XR 500 mg one tab oral twice daily after meals - when you go up on Rybelsus to 7 mg - you will stop Januvia and Glimepiride - check blood sugars before breakfast and before dinner - add exercise , include walking, resistance training - schedule bone density scar at [facility] - follow up in 2 months Assessment & Plan (08/23/2019 8:20 AM CDT): On home orals. A1c 6.1 in March. -A1c -Accuchecks and SSI PRN - Has not required any insulin over multiple days. 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 Currently taking Pitavastatin 2mg daily. Last lipid panel: 12/22/23 LDL=69, RA=014. Assessment & Plan (07/23/2024 1:44 PM R&D LAB TECHNICIAN): Chronic problem. Currently taking Pitavastatin 2mg daily. Last lipid panel: 12/22/23 LDL=69, XA=651. Assessment & Plan (12/19/2023 11:17 AM CDT): Chronic problem. Currently taking Pitavastatin 2mg daily. Last lipid panel: 01/04/23 LDL=90, TG=79. Will update labs. Verified that she uses [facility]. Aware to check results/results letter in [facility]. Will contact by phone if needed. Assessment & Plan (09/20/2023 11:42 AM CDT): Chronic problem. Currently taking Pitavastatin 2mg daily. Last lipid panel: 01/04/23 LDL=90, TG=79. Assessment & Plan (08/01/2023 9:00 AM R&D LAB TECHNICIAN): Chronic problem. Currently taking Pitavastatin 2mg daily. Last lipid panel: 01/04/23 LDL=90, TG=79. Assessment & Plan (04/23/2023 8:57 PM R&D LAB TECHNICIAN): C/w Pitavastatin Tolerating well Hypertension associated with diabetes 09/17/2015 Assessment & Plan (11/14/2024 1:52 PM CDT): Chronic problem. Currently taking carvedilol 3.125mg bid, entresto 24-26mg bid Assessment & Plan (07/23/2024 1:44 PM R&D LAB TECHNICIAN): Chronic problem. Currently taking carvedilol 3.125mg bid, entresto 24-26mg bid Assessment & Plan (12/19/2023 11:17 AM CDT): Chronic problem. Currently taking carvedilol 3.125mg bid, entresto 24-26mg bid Will update labs. Verified that she uses [employer] [facility]. Aware to check results/results letter in [facility]. Will contact by phone if needed. Assessment & Plan (09/20/2023 11:42 AM CDT): Chronic problem. BP initially elevated upon rooming. Currently taking carvedilol 3.125mg bid, entresto 24-26mg bid Assessment & Plan (08/01/2023 8:59 AM R&D LAB TECHNICIAN): Chronic problem. Controlled on current carvedilol 3.125mg bid, entresto 24-26mg bid Assessment & Plan (04/23/2023 8:57 PM R&D LAB TECHNICIAN): Chronic, well controlled Headache(784.0) 09/01/2015 SOB (shortness of breath) Assessment & Plan (04/11/2019 2:50 PM CDT): - unclear etiology, occurs intermittently at random, CXR with bilateral opacities but no cough/infectious symptoms Heart Failure. - echo with reduced EF of 45% Pt has bronchiectasis dx; start Entresto for HF Assessment & Plan (04/10/2019 2:23 PM CDT): - unclear etiology, occurs intermittently at random, CXR with bilateral opacities but no cough/infectious symptoms - s/p lasix in ED - echo with reduced EF Pt has bronchiectasis dx; Assessment & Plan (04/09/2019 8:11 PM CDT): - unclear etiology, occurs intermittently at random, CXR with bilateral opacities but no cough/infectious symptoms - s/p lasix in ED - echo pending Resolved Problems Problem Noted Date Diagnosed Date Resolved Date Morbid (severe) obesity due to excess calories 12/19/2023 12/19/2023 Encounters Date Type Department Care Team Description 01/10/2025 Orders Only [facility] Medicine Cardiology [address] [facility] [address] [place] [address] Torsten Perez MD 12/25/2024 12:53 PM CDT - 12/25/2024 11:59 PM CDT Hospital Encounter [address] [place] [address] Screening mammogram, encounter for Discharge Disposition: Discharge to home or self care from Last 3 Months Surgical History Surgery Date Site/Laterality Comments NECK SURGERY Neck Surgery - (Added by TW Conv) [place] CHOLECYSTECTOMY Cholecystectomy - (Added by TW Conv) [place] TOTAL ABDOMINAL HYSTERECT W/WO RMVL TUBE OVARY Hysterectomy - (Added by TW Conv) [place] COLONOSCOPY FLX DX W/ATTILA J SPEC WHEN PFRMD Colonoscopy (Fiberoptic) - (Added by TW Conv) [place] NEUROPLASTY &/TRANSPOS ME POLY NRV CARPAL TUNNE Neuroplasty Decompression Median Nerve At Carpal Tunnel - (Added by TW Conv) Medical History Medical History Date Comments Personal history of other en docrine, nutritional and metabolic disease History of diabetes mellitus - (Added by TW Conv) Personal history of other di seases of the nervous system and sense organs History of myopia - (Added by TW Conv) 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 Dry eyes, bilateral - (Added by TW Conv) Essential (primary) hypertension Hypertension - (Added by TW Conv) Personal history of other di seases of the digestive system History of esophageal reflux - (Added by TW Conv) Personal history of other di seases of the respiratory system History of allergic rhinitis - (Added by TW Conv) Personal history of other di seases of the musculoskeletal system and connective tissue History of arthritis - (Adde d by TW Conv) Personal history of other en docrine, nutritional and metabolic disease History of hyperchol esterolemia - (Added by TW Conv) Personal history of other di seases of the nervous system and sense organs History of carpal tunnel syndrome - (Added by TW Conv) Arrhythmia Atrial fibrillation (HCC) CHF (congestive heart failure) (HCC) Diabetes mellitus Hyperlipidemia Family History Medical History Relation Name Comments Coronary artery disease Father Fami ly history of coronary artery disease - (Added by TW Conv) Alzheimer's disease Mother Family h istory of Alzheimer's disease - (Added by TW Conv) Diabetes Other 1 Family history of diabetes mellitus - (Added by TW Conv) Coronary artery disease Other 2 Fami ly history of coronary artery disease - (Added by TW Conv) Relation Name Status Comments Father Mother Other 1 Other 2 Social History Tobacco Use Types Packs/Day Years Used Date Smoking Tobacco: Never Smokeless Tobacco: Never Tobacco Cessation:Counseling Given: Not Answered Alcohol Use Standard Drinks/Week Comments Yes 0 [...] on file Legal Sex Female 6:22 PM R&D LAB TECHNICIAN Gender Identity Female 02/09/2018 7:35 AM CDT Sexual Orientation Not on file Obstetrics History Para Term AB IAB SAB Ectopic Multiple Livin g Live Births 1 1 Date Outcome GA Total Labor Labor/2nd/3rd Weight Sex Type Anes PTL Bridget A1 A5 Name Clin Last Filed Vital Signs Vital Sign Reading Time Taken Comments Blood Pressure 144/86 12/02/2024 1:58 PM CDT Pulse 95 12/02/2024 1:58 PM CDT Temperature 36.4 C (97.6 F) 12/02/2024 1:58 PM CDT Respiratory Rate 18 11/14/2024 1:23 PM CDT Oxygen Saturation 95% 12/02/2024 1:58 PM CDT Inhaled Oxygen Concentration - - Weight 99.8 kg (220 lb) 12/25/2024 1:07 PM CDT Height 165.1 cm (5' 5) 12/25/2024 1:07 PM CDT Body Mass Index 36.61 12/25/2024 1:07 PM CDT Plan of Treatment Health Maintenance Due Date Last Done Comments Depression Screening 1945 Hepatitis C Screening 1945 Hepatitis B Screening 1965 Zoster Vaccine (1 of 2) 1997 Well Visit 65+ 02/23/2012 Fall Risk Assessment 08/26/2020 08/27/2019 Covid-19 Vaccine (2024-2 6 season) 2025 11/12/2021, 04/06/2021, 07/08/2020, Additional history exists Influenza Vaccine (#1) 2025 2, 03/25/2021, 03/16/2020, Additional history exists Hemoglobin A1C 05/16/2025 11/14/2024, 07/13, 12/19/2023, Additional history exists Osteoporosis Screening-Bone Density Scan 05/18/2025 05/18/2023 Dilated Eye Exam 06/15/2025 06/15/2023 Foot Exam 07/23/2025 07/23/2024, 04/19/2023 Albumin Creatinine Ratio, Urine 11/14/2025 , 12/22/2023 Lipid Panel 11/14/2025 11/14/2024, 12/10, 12/22/2023, Additional history exists eGFR 11/14/2025 11/14/2024, 12/10, 05/31/2021, Additional history exists DTaP/Tdap/Td Vaccine (3 - Td or Tdap) 12/16/2029 12/17/2019, 08/03/2010 Pneumococcal vaccine 65+ Completed 018, 03/11/2018, 05/05/2014 Breast Cancer Screening-Mammogram Discontinued 12/25/2024, 09/27/2023, 12/09/2021 Medical Devices Implanted Type Area Bilingual Receptionist Device Identifier Shelf Expiration Date Model / Serial / Lot [employer] 8tc/52 Tendril Sts 6fr 52cm Is-1 Connector Active Fixation Bipolar Soft - [id number] - [id number] Implanted:Qty : 1 on 08/26/2019 by Torsten Perez MD at [facility] Lead [employer] 08/09/20228TC/52 / [id number] / [employer] 1458q/86 Quartet 5fr [id number] Electrode Is-4 Connector Steerable Tip - [id number] - [id number] Implanted:Qty : 1 on 08/26/2019 by Torsten Perez MD at [facility] Lead [employer] 07/12/2022 1458Q/86 / [id number] / [employer] 2088tc/46 Tendril Sts 6fr 46cm Is-1 Connector Bipolar Active Fixation - [id number] - [id number] Implanted:Qty : 1 on 08/26/2019 by Torsten Perez MD at [facility] Lead [employer] 07/12/2022 2088TC/46 / [id number] / [employer] [id number] Pacemaker Quadra Allure Mp Rf Process Assistant-P Mri - [id number] - [id number] Implanted:Qty : 1 on 08/26/2019 by Torsten Perez MD at [facility] Pacemaker [employer] 01/09/2021 [id number] / [id number] / Description:LV FIRST BY 15 m s, P4 to can. Daig Megan/[employer] [id number] Angio-Seal Evolution 6fr .035in Guidewire Bypass Tube Suture - [id number] - [id number] Implanted:Qty : 1 on 04/11/2019 by Kiko Tyson MD at [facility] N/A: Arterial Daig Megan[employer] 01/10/2020 [id number] / [id number] / [id number] Procedures Procedure Name Priority Date/Time Associated Diagnosis Comments DEVICE CHECK - REMOTE Routine 01/10/2025 2:49 PM CDT SCREENING MAMMOGRAM BILATERAL W TR Schedule Routine, Read Routine (OP Routine) 12/25/2024 1:20 PM CDT Screening mammogram, encounter for EGFR Routine 11/14/2024 2:18 PM CDT Type 2 diabetes mellitus with hyperglycemia, without long-term current use of insulin (HCC) Hypertension associated with diabetes (HCC) LIPID PANEL Routine 11/14/2024 2:18 PM CDT Type 2 diabetes mellitus with hyperglycemia, without long-term current use of insulin (HCC) Hyperlipidemia associated with type 2 diabetes mellitus (HCC) ALBUMIN CREATININE RATIO, URINE Routine 11/14/2024 2:18 PM CDT Type 2 diabetes mellitus with hyperglycemia, without long-term current use of insulin (HCC) POCT HEMOGLOBIN A1C Routine 11/14/2024 1:26 PM CDT Type 2 diabetes mellitus with hyperglycemia, without long-term current use of insulin (HCC) HM DIABETES EYE EXAM Routine 06/15/2023 DEXA AXIAL SKELETON BONE DENSITY 1 OR MORE SITES Schedule Routine, Read Routine (OP Routine) 05/18/2023 12:49 PM R&D LAB TECHNICIAN Age-related osteoporosis without current pathological fracture from Last 3 Months or Most Recently Relevant to Health Maintenance Results * DEVICE CHECK - REMOTE (01/10/2025 2:49 PM CDT) Anatomical Region Laterality Modality Other 01/10/2025 2:49 PM CDT Narrative 02/13/2025 1:10 AM CDT Interpretation Summary: Battery and Leads (BL) Normal parameters noted on battery and lead(s) --- 1.85 years remaining (this is an estimate based on prior usage) Presenting Rhythm (FL) Atrial Sensing-BiVentricular Pacing (-BiVP) --- rate 90 Arrhythmic events (AE) Atrial High-Rate Episode(s) identified --- Five non-sustained AT episodes Anticoagulation (AC) Patient on anticoagulant therapy Patient prescribed Apixaban (Eliquis) Transmission Information (TI) Device Summary Report Procedure Note Torsten Perez MD - 02/13/2025 Interpretation Summary: Battery and Leads (BL) Normal parameters noted on battery and lead(s) --- 1.85 years remaining(this is an estimate based on prior usage) Presenting Rhythm (FL) Atrial Sensing-BiVentricular Pacing (-BiVP) --- rate 90 Arrhythmic events (AE) Atrial High-Rate Episode(s) identified --- Five non-sustained ATepisodes Anticoagulation (AC) Patient on anticoagulant therapy Patient prescribed Apixaban (Eliquis) Transmission Information (TI) Device Summary Report us Torsten Perez MD [facility] C[facility] PRO CEDURES Final Result * Screening Mammogram Bilateral W Tr (12/25/2024 1:20 PM CDT) Anatomical Region Laterality Modality Breast Bilateral Mammography Impressions 12/27/2024 12:06 PM CDT Bilateral No evidence of malignancy in either breast. OVERALL BI-RADS FINAL ASSESSMENT: 1 - Negative RECOMMENDATION: Recommend bilateral annual screening mammography. Narrative 12/27/2024 12:06 PM CDT EXAMINATION: Screening Mammogram Bilateral W Tr: 12/25/2024 COMPARISON: Relevant prior studies available at the time of interpretation were reviewed, including the most recent mammogram on: 09/27/2023. TECHNIQUE: Mammography was performed with 2D and digital breast tomosynthesis (DBT) images. CAD was utilized. BREAST PARENCHYMAL COMPOSITION: The breasts are heterogeneously dense, which may obscure small masses. FINDINGS: Bilateral There is no suspicious mass, calcification, or architectural distortion in either breast. us Self Screening Mammogram IMG MAMMO PROCEDURES Fi nal Result * eGFR (11/14/2024 2:18 PM CDT) eGFR 65 >=60 mL/min/1. 73 m2 Comment: Interpretive Data Reference Interval Normal >/= 90 mL/min/1.73m2 Mildly decreased* 60 - 89 mL/min/1.73m2 Mildly to moderately decreased 45 - 59 mL/min/1.73m2 Moderately to severely decreased 30 - 44 mL/min/1.73m2 Severely decreased 15 - 29 mL/min/1.73m2 Kidney Failure < 15 mL/min/1.73m2 *Relative to young adult level Estimated glomerular filtration rate is determined by the 2020 CKD-EPI equation recommended by the National Kidney Foundation (A Unifying Approach to GFR Estimation: Recommendations of the NKF-ASK Task Force on Reassessing the Inclusion of Race in Diagnosing Kidney Disease, JASN 2020). The CKD-EPI equation should not be used for patients with unstable renal function and has not been validated in children and those over 70. Current interpretive data was last reviewed 2021. Blood 11/14/2024 2:18 PM CDT 11/14/2024 7:35 PM CDT us Berta Ames NP LAB BLOOD ORDERABLES Yazmin hayes Result [facility] [address] [place] [address] * Albumin Creatinine Ratio, Urine (11/14/2024 2:18 PM CDT) Albumin Ur <12.0 mg/L Comment: Interpretive Data No reference range established. Current interpretive data was last revised 2018. Creatinine Ur 57.5 mg/dL [facility] Comment: Interpretive Data No reference range established. Current interpretive data was last revised 2018. Albumin Creatinine Ratio, Ur <21 1 - 29 mg/g [facility] Urine 11/14/2024 2:18 PM CDT 11/14/2024 7:03 PM CDT us Berta Ames NP LAB URINE ORDERABLES Yazmin hayes Result [facility] [address] Department [place] [address] * (ABNORMAL) Lipid panel (11/14/2024 2:18 PM CDT) Cholesterol 145 30 - 199 mg/dL Comment: Interpretive Data Ages < or = 19 years Acceptable: <170 mg/dL Borderline high: 170-199 mg/dL High: >or= 200 mg/dL Ages > or = 20 years Desirable: <200 mg/dL Borderline high: 200-239 mg/dL High: >or= 240 mg/dL Literature References: 1. Expert Panel on Integrated Guidelines for Cardiovascular Health and Risk Reduction in Children and Adolescents. Pediatrics 2011;128:S213 2. NCEP Expert Panel. Circulation 2004;110:227 Current Interpretive Data was last revised on 2018. Triglycerides 168(H) <=149 mg/dL [facility] Comment: Interpretive Data Ages < or = 9 years Acceptable: <75 mg/dL Borderline high: 75-99 mg/dL High: >or= 100 mg/dL Ages 10 to 20 years Acceptable: <90 mg/dL Borderline high: 90-129 mg/dL High: >or= 130 mg/dL Ages > or = 20 years Desirable: <150 mg/dL Borderline high: 150-199 mg/dL High: 200-499 mg/dL Very high: >or= 499 mg/dL Literature References: 1. Expert Panel on Integrated Guidelines for Cardiovascular Health and Risk Reduction in Children and Adolescents. Pediatrics 2011;128:S213 2. NCEP Expert Panel. Circulation 2004;110:227 Current Interpretive Data was last revised on 2018. HDL 42 >=40 mg/dL [facility] Comment: Interpretive Data Ages < or = 19 years Acceptable: >45 mg/dL Borderline low: 40-45 mg/dL Low: <40 mg/dL Ages > or = 20 years Desirable: >or= 60 mg/dL Low: <40 mg/dL Literature References: 1. Expert Panel on Integrated Guidelines for Cardiovascular Health and Risk Reduction in Children and Adolescents. Pediatrics 2011;128:S213 2. NCEP Expert Panel. Circulation 2004;110:227 Current Interpretive Data was last revised on 2018. LDL, calculated 74 <=129 mg/dL [facility] Comment: Interpretive Data Ages < or = 19 years Acceptable: <110 mg/dL Borderline high: 110-129 mg/dL High: >or= 130 mg/dL Ages > or = 20 years Optimal: <100 mg/dL Near optimal: 100-129 mg/dL Borderline high: 130-159 mg/dL High: >160 mg/dL Calculated using the Jefry LDL-C estimating equation. This equation was implemented on 2024. Prior to this date LDL-C was estimated using the Friedewald equation. Literature References: 1. Expert Panel on Integrated Guidelines for Cardiovascular Health and Risk Reduction in Children and Adolescents. Pediatrics 2011;128:S213 2. NCEP Expert Panel. Circulation 2004;110:227 3. Jefry Hinds et al. MONIKA Cardiol. 2020 October 10;5(5):540-548. doi: 10.1001/jamacardio.2020.0013 Current Interpretive Data was last revised on 2024. Non-HDL Cholesterol 103 mg/dL [facility] Comment: Interpretive Data Ages < or = 19 years Acceptable: <120 mg/dL Borderline high: 120-144 mg/dL High: >145 mg/dL Ages > or = 20 years When triglycerides are >200 mg/dL, Non-HDL cholesterol is a secondary target of therapy with treatment goals that are 30 mg/dL greater than the LDL cholesterol target. Literature References: 1. Expert Panel on Integrated Guidelines for Cardiovascular Health and Risk Reduction in Children and Adolescents. Pediatrics 2011;128:S213 2. NCEP Expert Panel. Circulation 2004;110:227 Current Interpretive Data was last revised on 2018. Chol/HDL ratio 3 [facility] MARY ALICE Blood 11/14/2024 2:18 PM CDT 11/14/2024 7:03 PM CDT Berta Ames NP LAB BLOOD ORDERABLES Yazmin l Result [facility] [address] [address] [place] [address] * (ABNORMAL) POCT hemoglobin A1c (11/14/2024 1:26 PM CDT) Hemoglobin A1C, POC 6.8(A) 4.0 - 5.6 % Blood 11/14/2024 1:26 PM CDT Berta Ames NP POINT OF CARE TEST ORDERA BLES Final Result * DIABETES EYE EXAM (06/15/2023) 06/15/2023 Historical Provider HEALTH MAINTENANCE Edited Result - Final * Dexa Axial Skeleton Bone Density 1 or 2 Site (05/18/2023 12:49 PM R&D LAB TECHNICIAN) Anatomical Region Laterality Modality Body N/A Other 05/18/2023 7:38 PM R&D LAB TECHNICIAN Narrative 05/18/2023 7:44 PM R&D LAB TECHNICIAN EXAM DESCRIPTION: DEXA AXIAL SKELETON BONE DENSITY 1 OR MORE SITES REASON FOR STUDY: 78 y/o year old F with given history of: Osteoperosis Osteoporosis screening 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 IMPRESSION: Normal bone mass. REFERENCE: Bone mineral density: Normal (T-score above or = -1.0) Low bone mass (T-score between -1.0 and -2.5) replaces the previously used term osteopenia Osteoporosis (T-score = or below -2.5) Medical evaluation for secondary causes of low bone mineral density may be appropriate. FRAX is a World Health Organization validated fracture risk assessment tool that calculates a person's 10 year probability of a major osteoporosis related fracture and hip fracture. According to the National Osteoporosis Foundation guidelines, postmenopausal women and men age 50 or older with low bone mass and a 10 year probability of a major osteoporosis related fracture = or greater than 20% or a 10 year probability of a hip fracture = or greater than 3% should be considered for treatment. For further information, including treatment recommendations, please refer to the 2019 ISCD Official Positions (http://www.iscd.org) and the NOF's Clinician's Guide to Prevention and Treatment of Osteoporosis (http://www.nof.org/professionals/clinical-guidelines) THIS IS AN ELECTRONICALLY VERIFIED FINAL REPORT 05/18/2023 7:44 PM - Electronically signed by Elijah Godwin M.D. 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 IMPRESSION: Normal bone mass. REFERENCE: Bone mineral density: Normal (T-score above or = -1.0) Low bone mass (T-score between -1.0 and -2.5) replaces thepreviously used term osteopenia Osteoporosis (T-score = or below -2.5) Medical evaluation for secondary causes of low bone mineral density may be appropriate. FRAX is a World Health Organization validated fracture risk assessmenttool that calculates a person's 10 year probability of a major osteoporosisrelated fracture and hip fracture. According to the National OsteoporosisFoundation guidelines, postmenopausal women and men age 50 or older with low bonemass and a 10 year probability of a major osteoporosis related fracture = or greater than 20% or a 10 year probability of a hip fracture = or greaterthan 3% should be considered for treatment. For further information, including treatment recommendations, please referto the 2019 ISCD Official Positions (http://www.iscd.org) and the NOF's Clinician's Guide to Prevention and Treatment of Osteoporosis (http://www.nof.org/professionals/clinical-guidelines) THIS IS AN ELECTRONICALLY VERIFIED FINAL REPORT 05/18/2023 7:44 PM - Electronically signed by Elijah Godwin M.D. MF: CLIFFORD Report ID: [id number] Reading Location: [place] [address] Patric Hsieh MD IM DXA PROCEDURES Final Result from Last 3 Months or Most Recently Relevant to Health Maintenance Insurance MEDICARE COMMERCIAL GENERIC [facility] CIELO ZAMORA [address] [place] [phone] MEDICARE LOCAL [facility] M[facility] SUPPLEMENT Advance Directives For more information, please contact: [phone] Documents on File Type Date Recorded Patient Medical Staff Services Coordinator Expl anation ADVANCE DIRECTIVE 08/28/2019 1:46 PM POWER OF CLOTHING PRESSER-FINANCIAL/MEDICAL * Full Code (Latest Code Status on File) Date Activated Date Inactivated Comments 08/21/2019 1:47 PM 08/27/2019 5:03 PM * Full Code Date Activated Date Inactivated Comments 04/09/2019 7:48 PM 04/11/2019 9:09 PM Care Teams Carpet Or Rug Layer Helper Relationship Specialty Start Date End Date Anisha Medrano NP [address] [place] [address] [place] [address] PCP - General Nurse Practitioner 11/14/24
--- OUTSIDE RECORDS SUMMARY | 2025-03-14 10:37 | XMS_ITS | Encounter Summary ---
Author Organization [facility] Address [address] [place] [address] Phone Care Team Providers Care Finish Mixer Name Role Phone Ilan Lockwood MD Primary Care Provider [phone] Nat Collins RN Unavailable [phone] Anisha Medrano WORKERS COMPENSATION COORDINATOR Primary Care Provider [phone] Anisha Medrano NP Primary Care Provider [phone] Encounter Details Date Type Department Care Team (Late st Contact Info) Description 05/21/2019 Orders Only [facility] Medicine Scheduling [address] [facility] Advanced Medicine [place], [place] [id number] Tomas Reynoso MD [address] [facility] [address] [place], [place] [id number] Social History Tobacco Use Types Packs/Day Years Used Date Smoking Tobacco: Never Smokeless Tobacco: Never Alcohol Use Standard Drinks/Week Comments Yes 0 (1 standard drink = 0.6 oz pur e alcohol) some Comments No Sex and Gender Information Value Date Recorded Sex Assigned at Not on file Legal Sex Female 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 Gender Identity Female 02/09/2018 7:35 AM CDT Sexual Orientation Not on file documented as of this encounter Plan of Treatment Not on file documented as of this encounter Visit Diagnoses Not on filedocumented in this encounter Care Teams Finish Mixer Relationship Specialty [place] [address] [address] PCP - General 11/16/16 05/14/23 Anisha Medrano NP [address] [place] [address] PCP - General Nurse Practitioner 05/15/23 11/13/24 Anisha Medrano NP [address] [place] [address] PCP - General Nurse Practitioner 11/14/24 Nat Collins, RN [address] [address] [facility] Outpatient Cylinder Grinder 04/17/19 06/09/19 documented as of this encounter
--- OUTSIDE RECORDS SUMMARY | 2025-03-14 10:37 | XMS_ITS | Clinical Summary ---
Author Organization [facility] Address [address] [facility] [place] [address] Care Team Providers Care Retail Advertising Account Executive Name Role Phone Unavailable Primary Care Provider Unavailabl e Source Comments [facility],non-owned Affiliates and Associated Physician Practices is amultiple site organization consisting of ambulatory clinics and hospital sitesin [place], [place], [place] and [place]. This disclosure is being madepursuant to the Care Everywhere program and may not contain all information available regarding this patient. 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 Gender Identity Not on file Sexual Orientation Not on file Plan of Treatment Health Maintenance Due Date Last Done Comments BONE DENSITY TESTING 1945 HEPATITIS C SCREENING 02/17/1965 DTAP/TDAP/TD VACCINES (1 - Tdap) 1966 PNEUMOCOCCAL VACCINE 50+ (1 of 1 - PCV) 1997 ZOSTER VACCINE (1 of 2) 1997 Respiratory Syncytial Virus (RSV) Vaccine Pt: or over 60 yrs (1 - 1-dose 75+ series) 2022 DEPRESSION SCREENING 06/12/2024 COVID-19 VACCINE ( - 2023-2 5 season) 2025 INFLUENZA VACCINE (#1) 2025 HEPATITIS B VACCINE Aged Out No longe r eligible based on patient's age to complete this topic HIB VACCINE Aged Out No longer eligi ble based on patient's age to complete this topic HPV VACCINE Aged Out No longer eligi ble based on patient's age to complete this topic MENINGOCOCCAL (Group B) VACC INE SHARED DECISION-MAKING Aged Out No longer eligibl e based on patient's age to complete this topic MENINGOCOCCAL GROUPS A/C/Y/W VACCINE Aged Out No longer eligible b ased on patient's age to complete this topic Insurance MEDICARE
--- OUTSIDE RECORDS SUMMARY | 2025-03-14 10:37 | XMS_ITS | Encounter Summary ---
Author Organization [facility] Address [address] [place] [address] Phone Care Team Providers Care Director Government Name Role Phone Ilan Lockwood MD Primary Care Provider [phone] Anisha Medrano SENIOR BRAND MANAGER Primary Care Provider [phone] Anisha Medrano SENIOR BRAND MANAGER Primary Care Provider [phone] Encounter Details Date Type Department Care Team (Latest Contact Info) Description 07/29/2019 Orders Only [facility] Scanning, Provider Social History Tobacco Use Types Packs/Day Years Used Date Smoking Tobacco: Never Smokeless Tobacco: Never Alcohol Use Standard Drinks/Week Comments Yes 0 (1 standard drink = 0.6 oz pur e alcohol) some Comments No Sex and Gender Information Value Date Recorded Sex Assigned at Not on file 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 Gender Identity Female 02/09/2018 7:35 AM CDT Sexual Orientation Not on file documented as of this encounter Plan of Treatment Not on file documented as of this encounter Procedures Procedure Name Priority Date/Time Associated Diagnosis Comments CARDIOLOGY DOCUMENT SCAN 07/29/2019 documented in this encounter Results * SCAN - CARDIOLOGY (07/29/2019) Anatomical Region Laterality Modality Other us Provider Scanning CV CARDIAC SERVICES PROCEDURES Final Result documented in this encounter Visit Diagnoses Not on filedocumented in this encounter Care Teams Director Government Relationship Specialty [place] [address] [address] PCP - General 11/16/16 05/14/23 Anisha Medrano NP [address] [place] [address] PCP - General Nurse Practitioner 05/15/23 11/13/24 Anisha Medrano NP [address] [place] [address] PCP - General Nurse Practitioner 11/14/24 documented as of this encounter
--- OUTSIDE RECORDS SUMMARY | 2025-03-14 10:37 | XMS_ITS | Encounter Summary ---
Author Organization [facility] Address [address] [place] [address] Phone Care Team Providers Care Medical Technologist Name Role Phone Ilan Lockwood MD Primary Care Provider [phone] Nat Collins RN Unavailable [phone] Anisha Medrano NP Primary Care Provider [phone] Anisha Medrano NP Primary Care Provider [phone] Encounter Details Date Type Department Care Team (Latest Contact Info) Description 04/13/2019 Orders Only [facility] Scanning, Provider Social History Tobacco Use Types Packs/Day Years Used Date Smoking Tobacco: Never Smokeless Tobacco: Never Alcohol Use Standard Drinks/Week Comments Yes 0 (1 standard drink = 0.6 oz pur e alcohol) some Comments No Sex and Gender Information Value Date Recorded Sex Assigned at Not on file Legal 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 Gender Identity Female 02/09/2018 7:35 AM CDT Sexual Orientation Not on file documented as of this encounter Plan of Treatment Not on file documented as of this encounter Procedures Procedure Name Priority Date/Time Associated Diagnosis Comments SCAN - LABS 04/13/2019 documented in this encounter Results * SCAN - LABS (04/13/2019) us Provider Scanning Final Result documented in this encounter Visit Diagnoses Not on filedocumented in this encounter Care Teams Medical Technologist Relationship Specialty [place] [address] [address] PCP - General 11/16/16 05/14/23 Anisha Medrano NP [address] [place] [address] PCP - General Nurse Practitioner 05/15/23 11/13/24 Anisha Medrano NP [address] [place] [address] PCP - General Nurse Practitioner 11/14/24 Nat Collins, RN [address] [address] [facility] Outpatient Automobile Lights Assembler 04/17/19 06/09/19 documented as of this encounter
--- OUTSIDE RECORDS SUMMARY | 2025-03-14 10:37 | XMS_ITS | Encounter Summary ---
Author Organization [facility] Address [address] [place] [address] Care Team Providers Care Artist Mannequin Coloring Name Role Phone Ilan Lockwood MD Primary Care Provider [phone] Encounter Details Date Type Department Care Team (Late st Contact Info) Description 04/07/2022 Ksplice Message [facility] Family & Internal Medicine [address] [address] [place] [employer], [facility] Provider Reset appointment of 04/15 Social History Tobacco Use Types Packs/Day Years Used Date Smoking Tobacco: Never Smokeless Tobacco: Never Comments:no hx tobacco Alcohol Use Standard Drinks/Week Comments No 0 (1 standard drink = 0.6 oz pur e alcohol) AUDIT-C Answer Date Recorded Frequency of Alcohol Consumption Never 04/20/2018 Average Number of Drinks Not on file 018 Frequency of Binge Drinking Not on file 02/2018 PHQ-2 Answer Date Recorded PHQ-2 Score - If the patient scores above 3, please move on to questions 3-9 1 09/27/2021 Comments No Sex and Gender Information Value Date Recorded Sex Assigned at Not on file Legal Sex Female 5:54 PM CDT Gender Identity Not on file Sexual Orientation Not on file COVID-19 Exposure Response Date Recorded In the last 10 days, have yo u been in contact with someone who was confirmed or suspected to have Coronavirus/COVID-19? No / Unsure 03/26/2022 4:11 PM CDT documented as of this encounter Plan of Treatment Not on file documented as of this encounter Visit Diagnoses Not on filedocumented in this encounter Additional Health Concerns Infection Onset Date Last Indicated Resolved Time COVID-19 Rule Out 10/30/2023 10/30/2023 11/01/2023 12:01 PM CDT COVID-19 Confirmed 10/30/2023 10/30/2023 12:33 AM CDT documented as of this encounter Care Teams Artist Mannequin Coloring Relationship Specialty [place] [address] [place] [address] PCP - General FAMILY PRACTICE 03/21/18 documented as of this encounter
--- NOTE | 2025-03-14 11:45 | ED.FALL ---
HPI - Fall General Chief Complaint: Fall Stated Complaint: fall yesterday-left side of body pain Time Seen by Provider: 03/14/25 11:22 Source: patient Mode of arrival: ambulatory Limitations: no limitations History of Present Illness HPI Narrative: This is a 80 year old female that presents to the ER after a fall yesterday with head injury. Reports she tripped and fell forward. Reports hitting her head. She did not lose consciousness. Reports left hip and knee pain. Denies vision changes, vomiting, numbness, weakness. Related Data Home Medications ?Medication ?Instructions ?Recorded ?Confirmed ?Last Taken ?Type apixaban 5 mg tablet (Eliquis) mg 08/25/23 01/13/25 Unknown History carvedilol 3.125 mg tablet mg 08/25/23 01/13/25 Unknown History metformin 500 mg tablet,extended mg PO 08/25/23 01/13/25 Unknown History release 24 hr mirabegron 25 mg tablet,extended mg PO 08/25/23 01/13/25 Unknown History release 24 hr (Myrbetriq) pitavastatin calcium 2 mg tablet mg 08/25/23 01/13/25 Unknown History aspirin 81 mg tablet,delayed 81 mg PO DAILY 09/18/23 01/13/25 Unknown History release (Adult Low Dose Aspirin) coenzyme Q10 200 mg capsule (Co 200 mg PO DAILY 09/18/23 01/13/25 Unknown History Q-10) omega-3 fatty acids 1,250 mg 1,250 mg PO DAILY 09/18/23 01/13/25 Unknown History capsule semaglutide 1 mg/dose (4 mg/3 mL) 1 mg subcut WEEKLY 01/09/24 01/13/25 Unknown History subcutaneous pen injector (Ozempic) Allergies Allergy/AdvReac Type Severity Reaction Status Date / Time codeine Allergy Unknown DIZZINESS Verified 01/13/25 09:52 COUGH MED W CODEINE CHOCOLATE Allergy Unknown SINUS Uncoded 01/13/25 09:52 CONGESTION EGGS Allergy Unknown SINUS Uncoded 01/13/25 09:52 CONGESTITON MILK Allergy Unknown SINUS Uncoded 01/13/25 09:52 CONGESTION Review of Systems Review of Systems: All systems reviewed & are unremarkable except as noted in HPI and below PMFSH Past Medical History Medical History Allergies Arthritis Chronic GERD Diabetes Heart disease Osteoporosis Family History Family History Father Heart disease Grandparent Diabetes mellitus Social History Social History Smoking status: Never smoker Alcohol intake: never Do You Feel Safe in your Home?: Yes Lack of Transportation: No Lack of Food: Never True Current Housing: I Have Housing Concerned About Future Housing: No Difficulty Paying Gas/Electric Bills: No Difficulty Paying for Meds: No Currently Unemployed: No Education: Associate Degree Difficulty w/ Childcare or Family Care: No Living arrangements: with family Occupation/Education: retired Gender identity (if verbalized by the patient): Female Agree to blood products: Yes Exam Narrative: GENERAL: Well-appearing, well-nourished, and in no acute distress. HEAD: Normocephalic, atraumatic. EYES: PERRLA and EOMI. ENT: Nares clear, no rhinorrhea or epistaxis. Mucous membranes moist. Oropharynx without tonsillar hypertrophy exudate or other lesions. Bilateral TMs pearly galindo non-bulging NECK: Supple. No adenopathy or masses. CHEST: Clear to auscultation. No respiratory distress. No wheezes rales or rhonchi HEART: Regular rate and rhythm. No murmur heard. Normal peripheral pulses. ABDOMEN: Soft, nontender, nondistended, normal active bowel sounds. EXTREMITIES: Normal range of motion. No edema. Strength equal in bilateral upper and lower extremities (5/5) SKIN: Warm, dry, no rash. NEURO: No focal deficits. Alert and oriented x3. Cranial nerves 2-12 grossly intact PSYCH: Normal mood and affect Course Course Emergency Course: patient and family uptated on workup and agree with plan of care Vital Signs Vital signs: Vital Signs Temperature 98.7 F 03/14/25 10:32 Pulse Rate 109 H 03/14/25 10:32 Respiratory Rate 18 03/14/25 10:32 Blood Pressure 115/76 03/14/25 10:32 Pulse Oximetry 97 03/14/25 10:32 Oxygen Delivery Room Air 03/14/25 10:32 Temperature 98.7 F 03/14/25 10:32 Pulse Rate 109 H 03/14/25 10:32 Respiratory Rate 18 03/14/25 10:32 Blood Pressure 115/76 03/14/25 10:32 Pulse Oximetry 97 03/14/25 10:32 Oxygen Delivery Room Air 03/14/25 10:32 MDM - Fall MDM Narrative Medical decision making narrative: Patient presents the emergency department after a fall yesterday with head injury, left knee and hip pain. She is neurologically intact. CT brain, cervical spine without acute findings. Left knee x-ray showing degenerative changes. Left hip x-ray without acute osseous abnormalities. Incidentally patient noted to have some nodules in her lungs. Patient made aware of this. She does report she follows with a health and wellness coordinator, likely chronic findings. She is to follow up with primary provider. She was given warnings to return the ER Differential Diagnosis Differential diagnosis: Likely concussion without loss of consciousness and other (subdural hematoma, cervical spine fracture, contusion, sprain, hip fracture) Imaging Data Radiologist's impression: ITS Impressions Cervical Spine CT 03/14/25 11:14 IMPRESSION: HEAD: 1. No acute intracranial findings. C-SPINE: 1. Recommend CT chest. Bilateral nodular foci airspace disease and/or masses. 2. No C-spine fracture. Head CT 03/14/25 11:14 IMPRESSION: HEAD: 1. No acute intracranial findings. C-SPINE: 1. Recommend CT chest. Bilateral nodular foci airspace disease and/or masses. 2. No C-spine fracture. Knee X-Ray 03/14/25 11:33 IMPRESSION: 1. No fracture or dislocation identified. 2. Severe narrowing of the medial compartment and patellofemoral joint. If symptoms persist or worsen, consider a short-term follow-up study or additional imaging for further assessment. Hip/Pelvis X-Ray 03/14/25 12:30 Impression: No acute fracture or malalignment. Critical Care Time Critical Care Time Critical Care Time: No Discharge Plan Discharge Clinical Impression: Fall, Head injury, Left knee sprain Patient Disposition: Home Condition: Stable Instructions: Knee Sprain (ED), Head Injury (ED) Additional Instructions: Return to the emergency department if you experience fever, chest pain, shortness of breath, vomiting, weakness, numbness, or any other symptoms that are concerning to you. Rest. Elevate. Ice to the area. Tylenol or Ibuprofen as needed for pain Follow up with your primary care doctor The radiologist is seeing some nodules in your lungs and recommends a CT scan of your chest, follow up with your PCP to arrange this Patient Language: Estonian Prescriptions: No Action Ozempic 1 mg/dose (4 mg/3 mL) pen injector 1 mg subcut WEEKLY aspirin [Adult Low Dose Aspirin] 81 mg tablet,delayed release (DR/EC) 81 mg PO DAILY coenzyme Q10 [Co Q-10] 200 mg capsule 200 mg PO DAILY omega-3 fatty acids 1,250 mg capsule 1,250 mg PO DAILY carvedilol 3.125 mg tablet metformin 500 mg tablet extended release 24 hr PO pitavastatin calcium 2 mg tablet Myrbetriq 25 mg tablet extended release 24 hr PO Eliquis 5 mg tablet famotidine 40 mg tablet See Rx Instructions .ROUTE .COMPLEX Qty: 90 3RF Dose Instruction: TAKE 1 TABLET EVERY DAY Rx Instructions: TAKE 1 TABLET EVERY DAY Follow-up/Referrals: Anisha Medrano APRN [Primary Care Provider, Family Practice]
--- OUTSIDE RECORDS SUMMARY | 2025-03-14 12:24 | XMS_ITS | Encounter Summary ---
Author Organization [facility] Address [address] [place] [address] Phone Care Team Providers Care Ferry Hand Name Role Phone Ilan Lockwood MD Primary Care Provider [phone] Nat Collins RN Unavailable [phone] Anisha Medrano TRANSITIONAL CARE NURSE Primary Care Provider [phone] Anisha Medrano NP Primary Care Provider [phone] Encounter Details Date Type Department Care Team (Late st Contact Info) Description 05/21/2019 Orders Only [facility] Medicine Scheduling [address] [facility] Advanced Medicine [place], [place] [id number] Tomas Reynoso MD [address] [facility] [address] [place], [place] [id number] Social History Tobacco Use Types Packs/Day Years Used Date Smoking Tobacco: Never Smokeless Tobacco: Never Alcohol Use Standard Drinks/Week Comments Yes 0 (1 standard drink = 0.6 oz pur e alcohol) some Comments No Sex and Gender Information Value Date Recorded Sex Assigned at Not on file 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 Gender Identity Female 02/09/2018 7:35 AM CDT Sexual Orientation Not on file documented as of this encounter Plan of Treatment Not on file documented as of this encounter Visit Diagnoses Not on filedocumented in this encounter Care Teams Ferry Hand Relationship Specialty [place] [address] [address] PCP - General 11/16/16 05/14/23 Anisha Medrano NP [address] [place] [address] PCP - General Nurse Practitioner 05/15/23 11/13/24 Anisha Medrano NP [address] [place] [address] PCP - General Nurse Practitioner 11/14/24 Nat Collins, RN [address] [address] [facility] Outpatient Medical Laboratory Assistant 04/17/19 06/09/19 documented as of this encounter
--- OUTSIDE RECORDS SUMMARY | 2025-03-14 12:24 | XMS_ITS | Encounter Summary ---
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
--- OUTSIDE RECORDS SUMMARY | 2025-03-14 12:24 | XMS_ITS | Encounter Summary ---
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
--- OUTSIDE RECORDS SUMMARY | 2025-03-14 12:24 | XMS_ITS | Clinical Summary ---
Author Organization [facility] Address [address] [place] [address] Care Team Providers Care Drawing Tracer Name Role Phone Ilan Lockwood MD Primary Care Provider [phone] Allergies Active Allergy Reactions Criticality Noted Date [...] Take 1 capsule by mouth daily. Active [place]-3 Fatty Acids (FISH OIL) 1200 MG Cap [...] complication, with long-term current use of insulin ([facility]) 1 strip by Other route daily. Use as instructed 100 strip 1 2 Active Lancets (ONETOUCH ULTRASOFT) lancetsIndicati ons:Type 2 diabetes mellitus without complication, with long-term current use of insulin ([facility]) USE TO TEST BLOOD SUGAR ONCE DAILY [...] start Entresto for HF Paroxysmal atrial fibrillation ([facility]) 12/04/2019 Pacemaker 08/29/2019 Bradycardia 08/21/2019 Overview (08/11/2020): [...] schedule RAUDEL Coronary artery disease invo lving [place] coronary artery of [place] heart without angina pectoris 05/18/2019 Dilated cardiomyopathy ([facility]/HCC [facility]) 019 Chronic systolic congestive heart failure (CMS/H CC [facility]) 04/11/2019 Overview (08/11/2020): Last Assessment & Plan: [...] hyperglycemia, with long-term current use of insulin ([facility]) Overview (08/11/2020): Last Assessment & Plan: On [...] MCG/ 0.5 ML DOSE 04/06/2021,07/08/2020,06/10/2020 MODERNA COVID-19 (MECHANICAL ASSEMBLY SHELBIE KENYA), MRNA, LNP-S, PF, 50 MCG/ [...] Annual Medicare Wellness Visit 02/23/2012 PHQ-2 (Physician [place]) 06/12/2024 10/30/2023 Hemoglobin A1C 09/14/2024 03/16/2024, 03/12, [...] this topic Medical Devices Implanted Type Area Associate Technician Device Identifier Shelf Expiration Date Model / [...] - 11.0 x10'3/uL 03/16/2024 10:44 AM CDT [facility] RBC 3.90(L) 4.50 - 5.10 x10'6/uL 03/16/2024 10:44 AM CDT [facility] HGB 11.8(L) 12.3 - 15.3 G/DL 03/16/2024 10:44 AM CDT [facility] HCT 36.0 35.9 - 44.6 % 03/16/2024 10:44 AM CDT [facility] MCV 92.3 80.0 - 96.0 FL 03/16/2024 10:44 AM CDT [facility] MCH 30.3 25.3 - 30.9 PG 03/16/2024 10:44 AM T [facility] MCHC 32.8 31.0 - 34.1 G/DL 03/16/2024 10:44 AM CDT [facility] RDW 13.6 12.4 - 15.1 % 03/16/2024 10:44 AM CDT [facility] PLT 191 151 - 353 x10'3/uL 03/16/2024 10:44 AM T [facility] MPV 10.2 9.6 - 12.0 FL 03/16/2024 10:44 AM T [facility] RBC MORPHOLOGY NORMAL 03/16/2024 10:44 AM T [facility] PLT MORPH. NORMAL 03/16/2024 10:44 AM T [facility] WBC MORPHOLOGY NORMAL 03/16/2024 10:44 AM T [facility] LYMPHOCYTES % 26.1 15.8 - 45.0 % 03/16/2024 10:44 AM T [facility] NEUTROPHILS % 61.8 42.1 - 71.9 % 03/16/2024 10:44 AM T [facility] MONOCYTES % 8.4 5.7 - 12.5 % 03/16/2024 10:44 AM T [facility] EOSINOPHILS 2.6 0.0 - 5.6 % 03/16/2024 10:44 AM T [facility] BASOPHILS 0.7 0.0 - 1.3 % 03/16/2024 10:44 AM CDT [facility] ABS. NEUTROPHILS 3.52 1.40 - 6.00 x10'3/uL 03/16/2024 10:44 AM [facility] IMMATURE GRANS % 0.4 0.0 - 0.5 % 03/16/2024 10:44 AM [facility] ABS. LYMPHOCYTES 1.49 0.80 - 4.70 x10'3/uL 03/16/2024 10:44 AM [facility] GLUCOSE 146(H) 70 - 99 MG/DL 03/16/2024 11:21 AM [facility] BUN 19(H) 7 - 18 MG/DL 03/16/2024 11:21 AM [facility] CREATININE S/P/B 1.08(H) 0.55 - 1.02 MG/DL 03/16/2024 11:21 AM [facility] SODIUM S/P/B 142 136 - 145 MMOL/L 03/16/2024 11:21 AM [facility] POTASSIUM S/P/B 4.4 3.5 - 5.1 MMOL/L 03/16/2024 11:21 AM [facility] CHLORIDE S/P/B 105 100 - 108 MMOL/L 03/16/2024 11:21 AM [facility] CO2 25.9 21 - 32 MMOL/L 03/16/2024 11:21 AM [facility] CALCIUM S/P/B 9.3 8.5 - 10.1 MG/DL 03/16/2024 11:21 AM [facility] BILIRUBIN TOTAL S/P/B 0.5 0.2 - 1.2 MG/DL 03/16/2024 11:21 AM [facility] TOTAL PROTEIN S/P/B 7.2 6.4 - 8.2 G/DL 03/16/2024 11:21 AM [facility] ALBUMIN S/P/B 3.5 3.4 - 5.0 G/DL 03/16/2024 11:21 AM [facility] AST 20 15 - 37 U/L 03/16/2024 11:21 AM [facility] ALT 22 14 - 55 U/L 03/16/2024 11:21 AM [facility] ALKALINE PHOSPHATASE S/P/B 77 50 - 136 U/L 03/16/2024 11:21 AM [facility] ANION GAP 11.1 5 - 15 MMOL/L 03/16/2024 11:21 AM [facility] BUN CREATININE RATIO 17.6 6 - 26 03/16/2024 11:21 AM [facility] A/G RATIO 0.9(L) 1.0 - 2.0 RATIO 03/16/2024 11:21 AM [facility] GFR ESTIMATE 53(L) >90 ML/MIN/1. 73 M2 03/16/2024 11:21 AM [facility] Comment: NOTE: eGFR is not calculated for patients <18 years of age. This is an estimated GFR calculation using the new CKD EPI creatinine equation without race and so does not require a correction factor for race. This estimated GFR should not be used for calculating drug doses. TSH 3.157 0.358 - 3.74 uIU/ML 03/16/2024 11:21 AM [facility] Comment: HIGH DOSES OF BIOTIN MAY INTERFERE WITH THIS TEST RESULT. CORRELATION TO CLINICAL HISTORY AND PRESENTATION RECOMMENDED. CHOLESTEROL 142 <200.0 MG/DL 03/16/2024 11:21 AM [facility] TRIGLYCERIDES 110 <150 MG/DL 03/16/2024 11:21 AM [facility] HDL 51 >40.0 MG/DL 03/16/2024 11:21 AM [facility] LDL (CALCULATED) 69 <100 MG/DL 03/16/2024 11:21 AM CDT [facility] NON HDL CHOLESTEROL 91 <130 MG/DL 03/16/2024 11:21 AM CDT [facility] CHOL/HDL RATIO 2.8 0.0 - 4.5 03/16/2024 11:21 AM CDT [facility] VLDL CALCULATION 22 5 - 55 MG/DL 03/16/2024 11:21 AM CDT [facility] LIPID INTERPRETATION 03/16/2024 11:21 AM CDT [facility] Comment: NIH CONCENSUS REPORT RECOMMENDATIONS: ADULT CHILD LOW RISK: CHOLESTEROL <200 <170 TRIGLYCERIDE <150 --- HDL >=60 --- LDL <100 <110 BORDERLINE: CHOLESTEROL 200-239 170-199 TRIGLYCERIDE 150-199 --- HDL 40-59 --- LDL 100-159 110-129 HIGH RISK: CHOLESTEROL >=240 >=200 TRIGLYCERIDE >=200 --- HDL <40 --- LDL >=160 >=130 03/16/2024 1:11 AM CDT Benjamin Tovar MD LABORATORY Final Result [facility] [address] [place] [address], * (ABNORMAL) HEMOGLOBIN, GLYCOSYLATED (03/16/2024 1:11 AM CDT) HGB A1C 6.9(H) <5.7 % 03/16/2024 5:29 PM CDT [facility] Comment: INCREASED RISK OF DIABETES <5.7% NON-DIABETES 5.7-6.4% INCREASED RISK FOR FUTURE DIABETES > OR = 6.5 CONSISTENT WITH DIABETES STANDARDS OF MEDICAL CARE IN DIABETES-2010 DIABETES CARE, 33(SUPP 1): S1-S61,2009 ESTIMATED AVG GLUCOSE 151 mg/dL 03/16/2024 5:29 PM CDT [facility] 03/16/2024 1:11 AM CDT us Benjamin Tovar MD LABORATORY Final Result [facility] [address] [place] [address], * Colonoscopy (10/13/2015 12:00 AM CDT) 10/13/2015 10/13/2015 Narrative [facility] TO EPIC CONVERSION - 10/13/2015 12:00 AM CDT Documented hx of procedure Procedure Note Md Generic MD Srinath - 04/15/2018 Documented hx of procedure us Generic Conversion Md GUTIERREZ GI PROCEDURE ORDERABLES Final Result [facility] TO EPIC CONVERSION from Last 3 Months or Most Recently Relevant to Health Maintenance Insurance MEDICARE [place] [id number] Care Teams Drawing Tracer Relationship Specialty [place] [address] [place] [address] PCP - General FAMILY PRACTICE 03/21/18
--- OUTSIDE RECORDS SUMMARY | 2025-03-14 12:24 | XMS_ITS | Clinical Summary ---
Author Organization [facility] Address [address] [place] [address] Care Team Providers Care Machine Spreader Name Role Phone Unavailable Primary Care Provider Unavailabl e Source Comments [facility],non-owned Affiliates and Associated Physician Practices is amultiple site organization consisting of ambulatory clinics and hospital sitesin [place], [place], [place] and [place]. This disclosure is being madepursuant to the Care Everywhere program and may not contain all information available regarding this patient. Last updated 18.[facility] Allergies No known active allergies Social History Tobacco Use Types Packs/Day Years Used Date Smoking Tobacco: Never Assessed Comments Unknown Sex and Gender Information Value Date Recorded Sex Assigned at Not on file Legal Sex Female 6:14 AM PROCESSING SPEC Gender Identity Not on file Sexual Orientation [...]
--- OUTSIDE RECORDS SUMMARY | 2025-03-14 12:24 | XMS_ITS | Encounter Summary ---
Author Organization [facility] Address [address] [place] [address] Care Team Providers Care Port Steward Name Role Phone Ilan Lockwood MD Primary Care Provider [phone] Encounter Details Date Type Department Care Team (Late st Contact Info) Description 04/07/2022 [place] Message [facility] Family & Internal Medicine [address] [address] [place] Provider Reset appointment of 04/15 Social [...] documented as of this encounter Care Teams [place] Relationship Specialty [place] [address] [place] [address] PCP - General FAMILY PRACTICE 03/21/18 documented as of this encounter
--- OUTSIDE RECORDS SUMMARY | 2025-03-14 12:24 | XMS_ITS | Clinical Summary ---
Author Organization [facility] Address [address] [place] [address] Care Team Providers Care Business Objects Name Role Phone Anisha Medrano NP Primary Care Provider [phone] Allergies Active Allergy Reactions Criticality Noted Date [...] mg total) by mouth daily Active omega 7-gcr-gno-fish oil 1,200 (144-216) mg capsule Take 1 [...] hyperglycemia, without long-term current use of insulin ([facility]) TAKE 1 TABLET TWICE DAILY WITH MEALS 180 tablet 07/09/19 Active Additional Information Patient taking differently:500 mg oralDaily, Reported on 12/02/2024 OneTouch Ultra Test stripIndicatio ns:Type 2 diabetes mellitus with hyperglycemia, without long-term current use of insulin ([facility]) Check blood sugar daily E11.65 not insulin dependent 100 strip 07/31/19 Active lancets 33 gauge miscIndication s:Type 2 diabetes mellitus with hyperglycemia, without long-term current use of insulin ([facility]) One Touch Delica Lancets Check blood sugars daily Dx:E11.65 not insulin dependent 100 each 08/05/19 Active pen needle, diabetic (BD Ultra-Fine Mini Pen Needle) 31 gauge x 3/16 needleIndicati ons:Type 2 diabetes mellitus with hyperglycemia, without long-term current use of insulin ([facility]) USE TO INJECT 1-4 TIMES DAILY DIRECTED. 100 each 1 10/18/19 Active semaglutide (Ozempic) 1 mg/dose (4 mg/3 mL) pen injector injectionIndic ations:Type 2 diabetes mellitus with hyperglycemia, without long-term current use of insulin ([facility]) INJECT 1MG UNDER THE SKIN ONE TIME [...] 04/23/2023 Assessment & Plan (04/23/2023 8:58 PM BOAT CAMP OPERATOR): Chronic, worsening Counseled on diet and exercise Advise to increase resistance training Age-related osteoporosis wit hout current pathological fracture 04/23/2023 Assessment & Plan (07/23/2024 1:43 PM BOAT CAMP OPERATOR): DEXA completed 05/18/23 shows normal bone mass. [...] past. Assessment & Plan (08/01/2023 9:38 AM BOAT CAMP OPERATOR): DEXA completed 05/18/23 shows normal bone mass. Denies any h/o osteoporosis dx in past. Assessment & Plan (04/23/2023 8:58 PM BOAT CAMP OPERATOR): Repeat DEXA scan And further plans based [...] schedule RAUDEL Coronary artery disease invo lving [place] coronary artery of [place] heart without angina pectoris 05/18/2019 Dilated cardiomyopathy [...] in clinic. Okay for d/c home s/p [facility] Discharge Planning I have spent [...] [place] - will keep NPO [place] for [facility] tomorrow - continue aspirin start [...] infection. Assessment & Plan (07/23/2024 2:54 PM BOAT CAMP OPERATOR): Chronic problem. A1c at goal and improved from 6.6% 12/19/23 to now 6.5%. issues with nausea. Will move the ozempic back to 0.5mg weekly (instructed in how to count clicks to get 0.5mg dose). Current medications: Metformin XR 500mg twice daily Ozempic 0.5 mg weekly UTD on labs UTD on DM eye exam (06/2023 at [facility] in [place]). Discussed with Loretta Cortes: Strive for regular [...] Will update labs. Verified that she uses [employer]. Aware to check results/results letter in [employer]. Will contact by phone if needed. UTD on DM eye exam (06/2023 at [facility] in [place]). Discussed with Loretta Cortes: Strive for regular [...] UTD on DM eye exam (06/2023 at [facility] in [place]). Discussed with Loretta Cortes: Strive for regular [...] infection. Assessment & Plan (08/01/2023 9:47 AM BOAT CAMP OPERATOR): Chronic problem. A1c not at goal and juan carlos from 6.5% 04/19/23 to now 8.8%. [...] on labs. DM eye exam 06/2023 at [facility] in [place]. Letter sent to get copy of report. [...] infection. Assessment & Plan (04/23/2023 8:55 PM BOAT CAMP OPERATOR): Chronic , improving control , A1c 6.5 [...] training - schedule bone density scar at [facility] - follow up in 2 months [...] 2mg daily. Last lipid panel: 12/22/23 LDL=69, OA=978. Assessment & Plan (07/23/2024 1:44 PM BOAT CAMP OPERATOR): Chronic problem. Currently taking Pitavastatin 2mg daily. Last lipid panel: 12/22/23 LDL=69, CK=199. Assessment & Plan (12/19/2023 11:17 AM CDT): Chronic problem. Currently taking Pitavastatin 2mg daily. Last lipid panel: 01/04/23 LDL=90, TG=79. Will update labs. Verified that she uses [employer]. Aware to check results/results letter in [employer]. Will contact by phone if needed. Assessment & Plan (09/20/2023 11:42 AM CDT): Chronic problem. Currently taking Pitavastatin 2mg daily. Last lipid panel: 01/04/23 LDL=90, TG=79. Assessment & Plan (08/01/2023 9:00 AM BOAT CAMP OPERATOR): Chronic problem. Currently taking Pitavastatin 2mg daily. Last lipid panel: 01/04/23 LDL=90, TG=79. Assessment & Plan (04/23/2023 8:57 PM BOAT CAMP OPERATOR): C/w Pitavastatin Tolerating well Hypertension associated with diabetes 09/17/2015 Assessment & Plan (11/14/2024 1:52 PM CDT): Chronic problem. Currently taking carvedilol 3.125mg bid, entresto 24-26mg bid Assessment & Plan (07/23/2024 1:44 PM BOAT CAMP OPERATOR): Chronic problem. Currently taking carvedilol 3.125mg bid, entresto 24-26mg bid Assessment & Plan (12/19/2023 11:17 AM CDT): Chronic problem. Currently taking carvedilol 3.125mg bid, entresto 24-26mg bid Will update labs. Verified that she uses [employer]. Aware to check results/results letter in [employer]. Will contact by phone if needed. Assessment & Plan (09/20/2023 11:42 AM CDT): Chronic problem. BP initially elevated upon rooming. Currently taking carvedilol 3.125mg bid, entresto 24-26mg bid Assessment & Plan (08/01/2023 8:59 AM BOAT CAMP OPERATOR): Chronic problem. Controlled on current carvedilol 3.125mg bid, entresto 24-26mg bid Assessment & Plan (04/23/2023 8:57 PM BOAT CAMP OPERATOR): Chronic, well controlled Headache(784.0) 09/01/2015 SOB (shortness [...] Department Care Team Description 01/10/2025 Orders Only [facility] Medicine Cardiology [address] [facility] [address] [place] [address] Trosten Perez MD 12/25/2024 12:53 PM CDT - 12/25/2024 11:59 PM CDT Hospital Encounter [address] [place] [address] Screening mammogram, encounter for Discharge Disposition: Discharge to home or self care from Last 3 Months Surgical History Surgery Date Site/Laterality Comments NECK SURGERY Neck Surgery - (Added by TW Conv) [place] CHOLECYSTECTOMY Cholecystectomy - (Added by TW Conv) [place] TOTAL ABDOMINAL HYSTERECT W/WO RMVL TUBE OVARY Hysterectomy - (Added by TW Conv) [place] COLONOSCOPY FLX DX W/ATTILA J SPEC WHEN PFRMD Colonoscopy (Fiberoptic) - (Added by TW Conv) [place] NEUROPLASTY &/TRANSPOS ME POLY NRV CARPAL TUNNE [...] on file Legal Sex Female 6:22 PM BOAT CAMP OPERATOR Gender Identity Female 02/09/2018 7:35 AM [...] 09/27/2023, 12/09/2021 Medical Devices Implanted Type Area Order Tracer Device Identifier Shelf Expiration Date Model / Serial / Lot [employer] 8tc/52 Tendril Sts 6fr 52cm Is-1 Connector Active Fixation Bipolar Soft - [id number] - [id number] Implanted:Qty : 1 on 08/26/2019 by Torsten Perez MD at [facility] Lead [employer] 08/09/20228TC/52 / [id number] / [employer] 1458q/86 Quartet 5fr [id number] Electrode Is-4 Connector Steerable Tip - [id number] - [id number] Implanted:Qty : 1 on 08/26/2019 by Torsten Perez MD at [facility] Lead [employer] 07/12/2022 1458Q/86 / [id number] / [employer] 2088tc/46 Tendril Sts 6fr 46cm Is-1 Connector Bipolar Active Fixation - [id number] - [id number] Implanted:Qty : 1 on 08/26/2019 by Torsten Perez MD at [facility] Lead [employer] 07/12/2022 2088TC/46 / [id number] / [employer] [id number] Pacemaker Quadra Allure Mp Rf Phosphorus Processing Supervisor-P Mri - [id number] - [id number] Implanted:Qty : 1 on 08/26/2019 by Torsten Perez MD at [facility] Pacemaker [employer] 01/09/2021 [id number] / [id number] / Description:LV FIRST BY 15 m s, P4 to can. Daig Megan/[employer] [id number] Angio-Seal Evolution 6fr .035in Guidewire Bypass Tube Suture - [id number] - [id number] Implanted:Qty : 1 on 04/11/2019 by Kiko Tyson MD at [facility] N/A: Arterial Daig Megan/[employer] 01/10/2020 [id number] / [id number] / [id number] Procedures Procedure Name Priority Date/Time Associated Diagnosis [...] Read Routine (OP Routine) 05/18/2023 12:49 PM BOAT CAMP OPERATOR Age-related osteoporosis without current pathological fracture from [...] estimate based on prior usage) Presenting Rhythm (WI) Atrial Sensing-BiVentricular Pacing (-BiVP) --- rate 90 [...] estimate based on prior usage) Presenting Rhythm (WI) Atrial Sensing-BiVentricular Pacing (-BiVP) --- rate 90 [...] LAB BLOOD ORDERABLES Yazmin hayes Result [address] [address] [address] [place] [address] * Albumin Creatinine Ratio, Urine (11/14/2024 2:18 PM CDT) Albumin Ur <12.0 mg/L Comment: Interpretive Data No reference range established. Current interpretive data was last revised 2018. Creatinine Ur 57.5 mg/dL [facility] Comment: Interpretive Data No reference range established. Current interpretive data was last revised 2018. Albumin Creatinine Ratio, Ur <21 1 - 29 mg/g [facility] Urine 11/14/2024 2:18 PM CDT 11/14/2024 7:03 PM CDT us Berta Ames NP LAB URINE ORDERABLES Yazmin hayes Result [facility] [address] [address] Department [place] [address] * (ABNORMAL) Lipid panel (11/14/2024 2:18 PM [...] LAB BLOOD ORDERABLES Yazmin l Result [address] [address] [address] [place] [address] * (ABNORMAL) POCT hemoglobin A1c (11/14/2024 1:26 PM CDT) Hemoglobin A1C, POC 6.8(A) 4.0 - 5.6 % Blood 11/14/2024 1:26 PM CDT Berta Ames NP POINT OF CARE TEST ORDERA BLES Final Result * DIABETES EYE EXAM (06/15/2023) 06/15/2023 Historical Provider HEALTH MAINTENANCE Edited Result - Final * Dexa Axial Skeleton Bone Density 1 or 2 Site (05/18/2023 12:49 PM BOAT CAMP OPERATOR) Anatomical Region Laterality Modality Body N/A Other 05/18/2023 7:38 PM BOAT CAMP OPERATOR Narrative 05/18/2023 7:44 PM BOAT CAMP OPERATOR EXAM DESCRIPTION: DEXA AXIAL SKELETON BONE DENSITY 1 OR MORE SITES REASON FOR STUDY: 78 y/o year old F with given history of: Osteoperosis Osteoporosis screening Post menopausal Order Tracer/Model: [employer] (S/N [id number]) CLINICAL INFORMATION: Current height: 65.5 inches Maximum [...] Elijah Godwin M.D. MF: CLIFFORD Report ID: [id number] Reading Location: [id number] Procedure Note Elijah Godwin MD - 05/18/2023 EXAM DESCRIPTION: DEXA AXIAL SKELETON BONE DENSITY 1 OR MORE SITES REASON FOR STUDY: 78 y/o year old F with given history of:Osteoperosis Osteoporosis screening Post menopausal Order Tracer/Model: [employer] (S/N [id number]) CLINICAL INFORMATION: Current height: 65.5 inches Maximum [...] Elijah Godwin M.D. MF: CLIFFORD Report ID: [id number] Reading Location: [place] [address] Patric Hsieh MD IM DXA PROCEDURES Final Result from Last 3 Months or Most Recently Relevant to Health Maintenance Insurance MEDICARE COMMERCIAL GENERIC MEDICARE LOCAL [facility] H & W MCR SUPPLEMENT Advance Directives For more information, please contact: [phone] Documents on File Type Date Recorded Patient Plug Assembler Expl anation ADVANCE DIRECTIVE 08/28/2019 1:46 PM POWER OF FACILITATOR-FINANCIAL/MEDICAL * Full Code (Latest Code Status on File) Date Activated Date Inactivated Comments 08/21/2019 1:47 PM 08/27/2019 5:03 PM * Full Code Date Activated Date Inactivated Comments 04/09/2019 7:48 PM 04/11/2019 9:09 PM Care Teams Business Objects Relationship Specialty Start Date End Date Anisha Medrano NP [address] [place] [address] [place] [address] PCP - General Nurse Practitioner 11/14/24
--- OUTSIDE RECORDS SUMMARY | 2025-03-14 12:24 | XMS_ITS | Encounter Summary ---
Author Organization [facility] Address [address] [place] [address] Phone Care Team Providers Care Health Safety Instructor Name Role Phone Ilan Lockwood MD Primary Care Provider [phone] Nat Collins RN Unavailable [phone] Anisha Medrano NP Primary Care Provider [phone] Anisha Medrano NP Primary Care Provider [phone] Encounter Details Date Type Department Care Team (Latest Contact Info) Description 04/09/2019 Orders Only [facility] Scanning, Provider Social History Tobacco Use Types Packs/Day Years Used Date Smoking Tobacco: Never Smokeless Tobacco: Never Comments Unknown Sex and Gender Information Value Date Recorded Sex Assigned at Not on file Legal Sex Female 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
== END 2025-03-14 13:20 | disposition home or self-care (01) ==
PROVIDERS: Emergency Provider Physician Assistant; PCP Nurse Practitioner Adult Health
DX: S09.90XA Unspecified injury of head, initial encounter (principal); S83.92XA Sprain of unspecified site of left knee, initial encounter; W01.0XXA Fall on same level from slipping, tripping and stumbling without subsequent striking against object, initial encounter
CPT/HCPCS: 70450; 72125; 73502; 73562; 99284